=== PATIENT | male | born 1990 | race Caucasian/White ===

== ENCOUNTER 2017-06-26 07:53 | Inpatient (IN) | payer MEDICAID ==
[~2017-06-26] VITALS: Ht 190.5 cm; Wt 119.2 kg
[~2017-06-26 07:53] MED LIST: ONDA1TAB16 PO; PERC5TAB12 PO
[2017-06-26 07:55] VITALS: BP 139/88; PULSE 84; RESP 17; TEMP 98.1; O2SAT 99
[2017-06-26 08:27] LABS: BILIRUBIN, URINE NEG (NEG); BLOOD, URINE TRACE (NEG); GLUCOSE,URINE NEG (NEG); KETONE, URINE NEG (NEG); NITRITE,URINE NEG (NEG); URINE LEUKOCYTE ESTERASE NEG (NEG)
[2017-06-26 08:36] LABS: RBC, URINE 0-3 /hpf (0-3); SQUAMOUS EPITHELIAL CELL URINE 0-5 /hpf (0-5); URINE COLOR YELLOW (YELLW/STRAW)
--- NOTE | 2017-06-26 08:38 | PD ---
HPI Chief Complaint: Abdominal Pain Time Seen by Provider: 08:21 Travel History International Travel<30 days: No Contact w/Intl Traveler<30days: No Traveled to known affect area: No History of Present Illness HPI This patient complains of abdominal pain. Duration is 3-4 days. Severity is moderate. Location is right lower quadrant. He has nausea and decreased appetite. Denies fever. No history of abdominal surgeries. He had Hodgkin's lymphoma but treatment ended 5 years ago. He hasn't followed up since. He went through chemotherapy. No alleviating factors. Pain is greatly exacerbated by pressing on his right lower abdomen. He denies hematuria, does have history of kidney stone 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) Chemotherapy: Yes (6 YEARS AGO-HODGKINS LYMPHOMA) Diminished Hearing: No Gastrointestinal Disorders: Yes (ca tumor) Kidney Stones: Yes Integumentary: Yes (HEAD TO HANDS A CHILD) Past Surgical History Abdominal Surgery: Yes (2 abd sx for removal of tumors) Thoracic Surgery: Yes (LYMPH NODE REMOVAL rigth axilla) Other Surgery: Yes (2 PORT REMOVAL ) Social History Alcohol Use: No Tobacco Use: No Substance Use: No Allergies-Medications (Allergen,Severity, Reaction): Coded Allergies: clindamycin (Unverified Allergy, Severe, EDMUNDO'S SYNDROME, 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) vancomycin (Unverified Allergy, Severe, REDMANS SYNDROME, 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) Reported Meds & Prescriptions Reported Meds & Active Scripts Active No Active Prescriptions or Reported Medications Review of Systems General / Constitutional: No: Fever Eyes: No: Visual changes HENT: No: Headaches Cardiovascular: No: Chest Pain or Discomfort Respiratory: No: Shortness of Breath Gastrointestinal: Positive: Nausea, Abdominal Pain, Loss of Appetite Genitourinary: No: Dysuria Musculoskeletal: No: Pain Skin: No Rash Neurologic: No: Weakness Psychiatric: No: Depression Endocrine: No: Polydipsia Hematologic/Lymphatic: No: Easy Bruising Physical Exam Narrative GENERAL: Well-nourished, well-developed patient with abdominal pain. SKIN: Focused skin assessment reveals no rash and nodules. Skin is Warm and dry. HEAD: Atraumatic. Normocephalic. EYES: Pupils equal and round. No scleral icterus. No injection or drainage. ENT: No nasal bleeding or discharge. Mucous membranes pink and moist. NECK: Trachea midline. No JVD. CARDIOVASCULAR: Regular rate and rhythm. No murmur appreciated. RESPIRATORY: No accessory muscle use. Clear to auscultation. Breath sounds equal bilaterally. GASTROINTESTINAL: Abdomen soft, right lower quadrant is tender, nondistended. Hepatic and splenic margins not palpable. No rebound tenderness MUSCULOSKELETAL: No obvious deformities. No clubbing. No cyanosis. No edema. NEUROLOGICAL: Awake and alert. No obvious cranial nerve deficits. Motor grossly within normal limits. Normal speech. PSYCHIATRIC: Appropriate mood and affect; insight and judgment normal. Data Data Last Documented VS Vital Signs Date Time Temp Pulse Resp B/P (MAP) Pulse Ox O2 Delivery O2 Flow Rate FiO2 06/26/17 09:22 74 16 144/67 (92) 98 Room Air 06/26/17 07:55 98.1 Orders Orders Urinalysis - C+S If Indicated (06/26/17 08:15) Basic Metabolic Panel (Bmp) (06/26/17 08:31) Complete Blood Count With Diff (06/26/17 08:31) Prothrombin Time / Inr (Pt) (06/26/17 08:31) Act Partial Throm Time (Ptt) (06/26/17 08:31) Ct Abd/Pel W Iv Contrast(Rout) (06/26/17 08:31) Iv Access Insert/Monitor (06/26/17 08:31) NPO (06/26/17 08:31) Morphine Inj (Morphine Inj) (06/26/17 08:45) Ondansetron Inj (Zofran Inj) (06/26/17 08:45) Sodium Chloride 0.9% Flush (Ns Flush) (06/26/17 08:45) Sodium Chlor 0.9% 1000 Ml Inj (Ns 1000 M (06/26/17 08:45) Morphine Inj (Morphine Inj) (06/26/17 08:45) Iohexol 350 Inj (Omnipaque 350 Inj) (06/26/17 09:00) Ampicillin-Sulbactam Inj (Unasyn Inj) (06/26/17 09:15) Consent (06/26/17 09:37) Admit Order (Ed Use Only) (06/26/17 09:39) Labs Laboratory Tests Test 06/26/17 08:23 06/26/17 08:42 Urine Collection Type CLEAN CATCH Urine Color YELLOW Urine Turbidity CLEAR Urine pH 6.0 Urine Specific [place] 1.017 Urine Protein NEG mg/dL Urine Glucose (UA) NEG mg/dL Urine Ketones NEG mg/dL Urine Occult Blood TRACE Urine Nitrite NEG Urine Bilirubin NEG Urine Leukocyte Esterase NEG Urine RBC 0-3 /hpf Urine Squamous Epithelial Cells 0-5 /hpf Microscopic Urinalysis Comment CULT NOT INDICATED Urine Collection Time 08:23 White Blood Count 11.2 TH/MM3 Red Blood Count 4.93 MIL/MM3 Hemoglobin 14.5 GM/DL Hematocrit 42.3 % Mean Corpuscular Volume 85.8 FL Mean Corpuscular Hemoglobin 29.4 PG Mean Corpuscular Hemoglobin Concent 34.3 % Red Cell Distribution Width 11.8 % Platelet Count 214 TH/MM3 Mean Platelet Volume 7.2 FL Neutrophils (%) (Auto) 73.9 % Lymphocytes (%) (Auto) 12.5 % Monocytes (%) (Auto) 11.0 % Eosinophils (%) (Auto) 0.8 % Basophils (%) (Auto) 1.8 % Neutrophils # (Auto) 8.3 TH/MM3 Lymphocytes # (Auto) 1.4 TH/MM3 Monocytes # (Auto) 1.2 TH/MM3 Eosinophils # (Auto) 0.1 TH/MM3 Basophils # (Auto) 0.2 TH/MM3 CBC Comment DIFF FINAL Differential Comment Prothrombin Time 11.4 SEC Prothromb Time International Ratio 1.0 RATIO Activated Partial Thromboplast Time 29.7 SEC Blood Urea Nitrogen 10 MG/DL Creatinine 0.85 MG/DL Random Glucose 97 MG/DL Calcium Level 8.8 MG/DL Sodium Level 138 MEQ/L Potassium Level 4.0 MEQ/L Chloride Level 103 MEQ/L Carbon Dioxide Level 26.9 MEQ/L Anion Gap 8 MEQ/L Estimat Glomerular Filtration Rate 108 ML/MIN [facility] Medical Decision Making Medical Screen Exam Complete: Yes Emergency Medical Condition: Yes Medical Record Reviewed: Yes Differential Diagnosis Appendicitis, colitis, obstruction Narrative Course I have reviewed the patient's electronic medical record. IV placed CBC shows white count of 11.2 Metabolic profile is normal Coagulation studies are normal Urinalysis is clean CT of abdomen and pelvis with IV contrast shows acute appendicitis with suggestion of perforation given the free fluid around the appendix I gave him a dose of IV Zofran and IV morphine for symptom relief I gave him 1 L normal saline IV and a dose of IV Unasyn I reviewed the case in detail with general surgeon Dr. Geoff Shipley who will admit to the hospital and perform an appendectomy Diagnosis Primary Impression: Acute fulminating appendicitis with perforation and peritonitis Admitting Information Admitting Physician Requests: Admit Scripts No Active Prescriptions or Reported Meds Brian Zuñiga MD Jun 26, 2017 08:38
[2017-06-26 08:45] LABS: AUTOMATED NEUTROPHIL # 8.3 TH/MM3 (1.8-7.7); BASOPHIL # 0.2 TH/MM3 (0-0.2); BASOPHIL % 1.8 % (0.0-2.0); EOSINOPHIL # 0.1 TH/MM3 (0-0.4); EOSINOPHIL % 0.8 % (0.0-4.0); HEMATOCRIT 42.3 % (39.0-51.0); HEMOGLOBIN 14.5 GM/DL (13.0-17.0); LYMPH % 12.5 % (9.0-44.0); LYMPHOCYTE # 1.4 TH/MM3 (1.0-4.8); MEAN CELL VOLUME 85.8 FL (80.0-100.0); MEAN CORPUSCULAR HEMOGLOBIN 29.4 PG (27.0-34.0); MEAN CORPUSCULAR HGB CONC 34.3 % (32.0-36.0); MEAN PLATELET VOLUME 7.2 FL (7.0-11.0); MONOCYTE # 1.2 TH/MM3 (0-0.9); NEUT % 73.9 % (16.0-70.0); PLATELET COUNT 214 TH/MM3 (150-450); RED BLOOD COUNT 4.93 MIL/MM3 (4.50-5.90); RED CELL DISTRIBUTION WIDTH 11.8 % (11.6-17.2); WHITE BLOOD COUNT 11.2 TH/MM3 (4.0-11.0)
[2017-06-26] MEDS ORDERED: MORPHINE SULFATE 4 MG/ML INJ IV PUSH ONE (08:45)
[2017-06-26] MEDS ORDERED: SODIUM CHLOR 0.9% 1000 ML INJ 1,000 ML IV ONE (08:45)
[2017-06-26] MEDS ORDERED: MORPHINE SULFATE 8 MG/ML INJ IV PUSH ONE (08:45)
[2017-06-26] MEDS ORDERED: ONDANSETRON HCL 4 MG/2 ML VIAL IVP ONE (08:45)
[2017-06-26 08:55] LABS: CALCIUM 8.8 MG/DL (8.5-10.1)
[2017-06-26 08:56] LABS: BICARBONATE 26.9 MEQ/L (21.0-32.0)
[2017-06-26 08:57] LABS: PROTHROMBIN TIME - PATIENT 11.4 SEC (9.8-11.6)
[2017-06-26 08:59] LABS: CREATININE 0.85 MG/DL (0.60-1.30)
[2017-06-26] MEDS ORDERED: IOHEXOL 350 MG/ML 10 ML VIAL (for RAD DIAG) IVCONTRAST ONE (09:00)
[2017-06-26] MEDS ORDERED: AMPICILLIN-SULBACTAM INJ 1,500 MG in SODIUM CHLORIDE 0.9% INJ 100 ML IV ONE (09:15)
[2017-06-26 09:22] VITALS: BP 144/67; PULSE 74; RESP 16; O2SAT 98
--- NOTE | 2017-06-26 09:30 | RADRPT ---
EXAM DATE/TIME: 06/26/2017 08:56 [facility] COMPARISON: No previous studies available for comparison. INDICATIONS : Right lower quadrant pain x 4 days. Evaluate for appendicitis. IV CONTRAST: 85 cc Omnipaque 350 (iohexol) IV ORAL CONTRAST: No oral contrast ingested. RADIATION DOSE: 19.62 CTDIvol (mGy) MEDICAL HISTORY : Lymphoma. Renal calculi. SURGICAL HISTORY : Abdominal tumors removed. ENCOUNTER: Initial ACUITY: 4 - 6 days PAIN SCALE: 10/10 LOCATION: Right lower quadrant TECHNIQUE: Volumetric scanning of the abdomen and pelvis was performed. Using automated exposure control and adjustment of the mA and/or kV according to patient size, radiation dose was kept as low as reasonably achievable to obtain optimal diagnostic quality images. DICOM format image data is av ailable electronically for review and comparison. FINDINGS: LOWER LUNGS: The visualized lower lungs are clear. LIVER: Homogeneous density without lesion. There is no dilation of the biliary tree. No calcifi ed gallstones. SPLEEN: Mild splenomegaly is noted. PANCREAS: Within normal limits. KIDNEYS: Normal in size and shape. There is no mass, stone or hydronephrosis. ADRENAL GLANDS: Within normal limits. VASCULAR: There is no aortic aneurysm. BOWEL/MESENTERY: There is evidence of a dilated appendix with periappendiceal fluid and inflammat ory changes as well as tiny calcification suggesting appendicolith. The findings are consistent with acute appendicitis with probable perforation. Findings were called immediately to Dr. Zuñiga at 9:25 AM on 06/26/17. There is a small collection of free fluid within the pelvis. ABDOMINAL WALL: Within normal limits. RETROPERITONEUM: There is no lymphadenopathy. BLADDER: No wall thickening or mass. REPRODUCTIVE: Within normal limits. INGUINAL: There is no lymphadenopathy or hernia. MUSCULOSKELETAL: Within normal limits for patient age. CONCLUSION: 1. Dilated appendix with periappendiceal fluid and inflammatory changes as well as tiny calcification suggesting appendicolith. The findings are consistent with acute appendicitis with probable perforat ion. Findings were called immediately to Dr. Zuñiga at 9:25 AM on 06/26/17. There is a small collecti on of free fluid within the pelvis. 2. Mild splenomegaly. Anthony Mora MD on June 26, 2017 at 9:21 Board Certified Radiologist. This report was verified electronically.
[2017-06-26 10:55] VITALS: BP 128/58; PULSE 69; RESP 16; TEMP 97.9; O2SAT 99
[2017-06-26] MEDS: LACTATED RINGER'S 1000 ML IV PRN ×2 (11:30→12:33)
[2017-06-26] MEDS ORDERED: CHLORHEXIDINE GLUCONATE 2 % 1 PACK (2 CLOTHS) TOPICAL PRN (12:00)
[2017-06-26] MEDS ORDERED: SODIUM CHLORID 0.9% 500 ML IV PRN (12:00)
[2017-06-26] MEDS ORDERED: POVIDONE IODINE 5% (ANTISEPSIS KIT) 4 APPLICATIONS EACH NARE PRN (12:00)
[2017-06-26] MEDS ORDERED: METOPROLOL TARTRATE 25 MG TAB PO PRN (12:00)
[2017-06-26] MEDS ORDERED: INSULIN HUMAN REGULAR 1,000 UNITS/10 ML VIAL SQ PRN (12:00)
[2017-06-26] MEDS ORDERED: ACETAMINOPHEN 1000 MG/100 ML 100 ML IV ONE (12:39)
[2017-06-26] MEDS ORDERED: PIPERACIL-TAZO 2.25 GM PREMIX 50 ML IV SCH (13:15)
[2017-06-26] MEDS: D5-NS + KCL 20 MEQ INJ 1,000 ML IV SCH ×2 (13:33→21:33)
[2017-06-26] MEDS ORDERED: ONDANSETRON HCL 4 MG/2 ML VIAL IV PUSH PRN (13:45)
[2017-06-26] MEDS: DOCUSATE SODIUM 100 MG CAP PO SCH ×2 (13:45→21:48)
[2017-06-26] MEDS: SODIUM CHLORIDE 0.9% FLUSH 10 ML FLUSH IV FLUSH SCH ×2 (13:45→21:51)
[2017-06-26] MEDS ORDERED: Post-op Orders (for Pharmacy) MISC XX ONE (13:45)
[2017-06-26] MEDS ORDERED: SODIUM CHLORIDE 0.9% FLUSH 10 ML FLUSH IV FLUSH PRN (13:45)
[2017-06-26] MEDS ORDERED: ACETAMINOPHEN/HYDROcodone 325 MG/5 MG TAB PO PRN (13:45)
[2017-06-26] MEDS ORDERED: BUPIVACAINE HCL PF 0.5% 30 ML VIAL ONE (13:53)
[2017-06-26] MEDS ORDERED: SUGAMMADEX SODIUM 200 MG/2 ML VIAL IV PUSH ONE ×2 (14:21)
--- NOTE | 2017-06-26 14:23 | HHI.PR ---
Immediate Post Op Note Procedure Date: Jun 26, 2017 Pre Op Diagnosis: perforated appendicitis Post Op Diagnosis: same Surgeon: Geoff Shipley MD Route Salesman And Driver(s): see or sheet Procedure: lap appy Findings: contained perf appy Complications: none Specimen(s) removed: appendix, culture pus Estimated blood loss: 5cc Anesthesia: General Drains: YULI Patient to: PACU Patient Condition: Good Geoff Shipley MD Jun 26, 2017 14:23
--- NOTE | 2017-06-26 14:23 | HHI.PR ---
Immediate Post Op Note Procedure Date: Jun 26, 2017 Pre Op Diagnosis: perforated appendicitis Post Op Diagnosis: same Surgeon: Geoff Shipley MD Rail Specialist(s): see or sheet Procedure: lap appy Findings: contained perf appy Complications: none Specimen(s) removed: appendix, culture pus Estimated blood loss: 5cc Anesthesia: General Drains: YULI Patient to: PACU Patient Condition: Good Geoff Shipley MD Jun 26, 2017 14:23
--- NOTE | 2017-06-26 14:23 | HHI.PR ---
Immediate Post Op Note Procedure Date: Jun 26, 2017 Pre Op Diagnosis: perforated appendicitis Post Op Diagnosis: same Surgeon: Geoff Shipley MD Wind Energy Technician(s): see or sheet Procedure: lap appy Findings: contained perf appy Complications: none Specimen(s) removed: appendix, culture pus Estimated blood loss: 5cc Anesthesia: General Drains: YULI Patient to: PACU Patient Condition: Good Geoff Shipley MD Jun 26, 2017 14:23
[2017-06-26] MEDS ORDERED: MORPHINE SULFATE 2 MG/ML INJ ONE ×2 (15:20→15:36)
[2017-06-26] MEDS: KETOROLAC TROMETHAMINE 30 MG/ML (IVP) VIAL IVP PRN (15:26)
[2017-06-26 17:32] VITALS: BP 133/64; PULSE 82; RESP 16; TEMP 98.2; O2SAT 96
[2017-06-26] MEDS: ACETAMINOPHEN/HYDROcodone 325 MG/5 MG TAB PO PRN (18:19)
[2017-06-26 21:12] VITALS: BP 147/63; PULSE 73; RESP 18; TEMP 96.9; O2SAT 98
[2017-06-26] MEDS: PIPERACIL-TAZO 3.375 GM PREMIX 50 ML IV SCH (21:49)
--- NOTE | 2017-06-26 23:14 | MH ---
cc: NEMESIO COLIN MD DATE OF ADMISSION 06/26/2017 CHIEF COMPLAINT Right lower quadrant abdominal pain. HISTORY OF PRESENT ILLNESS The patient is a 27-year-old male who presents with acute onset of right lower quadrant abdominal pain. He states the pain has been going on for approximately 4 days. It is moderate in severity, continued to get worse, worse with movement, better with lying still. Also had associated nausea, vomiting, decreased appetite. The patient denied any fevers and came to the emergency department, further evaluation including CT scan showing acute appendicitis with localized abscess. Surgery consulted for further evaluation. On my exam the patient has a significant right lower quadrant pain consistent with appendicitis. He confirms the above and states he has never had this before. He has had a history of Hodgkin's lymphoma treated 5 years ago and is currently in remission. He did go through chemotherapy. He denies diarrhea, constipation. PAST MEDICAL HISTORY Hodgkin's lymphoma, kidney stones. PAST SURGICAL HISTORY Excision locally of abdominal tumors. Right axillary lymph node, excision of port. SOCIAL HISTORY Denies smoking, EtOH or IVDA. ALLERGIES CLINDAMYCIN AND VANCOMYCIN. MEDICATIONS See EMR. FAMILY HISTORY Denies diabetes or hypertension. REVIEW OF SYSTEMS GENERAL: Denies fevers or chills. HEENT: Denies eye pain or ear pain. NECK: Denies swelling or pain. LUNGS: Denies cough or wheeze. HEART: Denies palpitation or chest pain. ABDOMEN: Complained of nausea, vomiting, abdominal pain. : Denies dysuria, hematuria. MUSCULOSKELETAL: Denies arthralgia, myalgia. SKIN: Denies masses or lesions. NEUROLOGIC: Denies numbness or tingling. PSYCH: Denies change in mood or sensorium. ENDOCRINE: Denies polyuria, polydipsia. PHYSICAL EXAMINATION GENERAL: The patient no acute distress. VITAL SIGNS: Temperature 98.1, pulse 74, respirations 16, blood pressure 144/67, pulse ox 98% on room air. HEENT: PERRLA, pupils equal, round, reactive. LUNGS: Clear to auscultation. NECK: Supple. Trachea midline. HEART: S1-S2, regular rhythm. ABDOMEN: Soft, positive tenderness to palpation. Positive rebound right lower quadrant. No guarding. EXTREMITIES: Warm, well-perfused. INTEGUMENT: No obvious masses or lesions. PSYCH: Good insight, good judgment. NEUROLOGIC: GCS of 15. 5/5 motor all extremities. LABORATORY AND DIAGNOSTIC DATA WBC 11.2, hemoglobin 14.5, hematocrit 42.3, platelets 214, sodium 138, potassium 4, chloride 103, BUN 10, creatinine 0.85, calcium 8.8, INR is 1. IMAGING STUDIES CT reviewed by myself. Dilated appendix, periappendiceal inflammation, small appendicolith, abscess, perforation localized. ASSESSMENT The patient is a 27-year-old male, acute appendicitis. PLAN After full clinical, radiologic, laboratory workup the patient with the above-named issues including acute appendicitis. At this point the patient needs to be p.o. IV fluids, pain control. Will plan to take the patient to the OR tonight for laparoscopic appendectomy. Discussed with the patient in detail, understands and agrees. MD PRIYANKA Virk/SANGEETHA /10:54 PM /11:07 PM
[2017-06-27 00:37] VITALS: BP 119/55; PULSE 85; RESP 16; TEMP 98.7; O2SAT 97
[2017-06-27] MEDS: ACETAMINOPHEN/HYDROcodone 325 MG/5 MG TAB PO PRN ×4 (01:01→17:58)
[2017-06-27] MEDS: D5-NS + KCL 20 MEQ INJ 1,000 ML IV SCH ×3 (05:33→19:45)
[2017-06-27 06:55] LABS: AUTOMATED NEUTROPHIL # 7.9 TH/MM3 (1.8-7.7); BASOPHIL # 0.1 TH/MM3 (0-0.2); BASOPHIL % 0.5 % (0.0-2.0); EOSINOPHIL # 0.1 TH/MM3 (0-0.4); EOSINOPHIL % 0.7 % (0.0-4.0); HEMATOCRIT 36.8 % (39.0-51.0); HEMOGLOBIN 12.7 GM/DL (13.0-17.0); LYMPH % 11.4 % (9.0-44.0); LYMPHOCYTE # 1.2 TH/MM3 (1.0-4.8); MEAN CELL VOLUME 86.2 FL (80.0-100.0); MEAN CORPUSCULAR HEMOGLOBIN 29.8 PG (27.0-34.0); MEAN CORPUSCULAR HGB CONC 34.6 % (32.0-36.0); MEAN PLATELET VOLUME 7.3 FL (7.0-11.0); MONO % 8.6 % (0.0-8.0); MONOCYTE # 0.9 TH/MM3 (0-0.9); NEUT % 78.8 % (16.0-70.0); PLATELET COUNT 189 TH/MM3 (150-450); RED BLOOD COUNT 4.27 MIL/MM3 (4.50-5.90); RED CELL DISTRIBUTION WIDTH 11.4 % (11.6-17.2); WHITE BLOOD COUNT 10.2 TH/MM3 (4.0-11.0)
[2017-06-27 07:10] LABS: CALCIUM 8.4 MG/DL (8.5-10.1)
[2017-06-27 07:11] LABS: BICARBONATE 28.5 MEQ/L (21.0-32.0)
[2017-06-27 07:14] LABS: CREATININE 0.75 MG/DL (0.60-1.30)
[2017-06-27] MEDS: PIPERACIL-TAZO 3.375 GM PREMIX 50 ML IV SCH ×3 (07:18→22:05)
[2017-06-27] MEDS: SODIUM CHLORIDE 0.9% FLUSH 10 ML FLUSH IV FLUSH SCH ×2 (07:28→19:45)
[2017-06-27] MEDS: DOCUSATE SODIUM 100 MG CAP PO SCH ×2 (07:39→19:45)
[2017-06-27 08:00] VITALS: BP 138/71; PULSE 84; RESP 16; TEMP 96.6; O2SAT 99
--- NOTE | 2017-06-27 08:08 | HHI.PR ---
Subjective Subjective Notes urinary retention, left scrotal pain, still with abdominal pain but better, no nausea Objective Vitals/I&O Vital Signs Date Time Temp Pulse Resp B/P (MAP) Pulse Ox O2 Delivery O2 Flow Rate FiO2 06/27/17 04:06 06/27/17 00:37 98.7 85 16 97 06/26/17 16:00 Room Air 06/26/17 14:40 3 Labs Laboratory Tests Test 06/26/17 08:23 06/26/17 08:42 06/27/17 06:40 Urine Collection Type CLEAN CATCH Urine Color YELLOW Urine Turbidity CLEAR Urine pH 6.0 Urine Specific [place] 1.017 Urine Protein NEG Urine Glucose (UA) NEG Urine Ketones NEG Urine Occult Blood TRACE Urine Nitrite NEG Urine Bilirubin NEG Urine Leukocyte Esterase NEG Urine RBC 0-3 Urine Squamous Epithelial Cells 0-5 Microscopic Urinalysis Comment CULT NOT INDICATED Urine Collection Time 08:23 White Blood Count 11.2 10.2 Red Blood Count 4.93 4.27 Hemoglobin 14.5 12.7 Hematocrit 42.3 36.8 Mean Corpuscular Volume 85.8 86.2 Mean Corpuscular Hemoglobin 29.4 29.8 Mean Corpuscular Hemoglobin Concent 34.3 34.6 Red Cell Distribution Width 11.8 11.4 Platelet Count 214 189 Mean Platelet Volume 7.2 7.3 Neutrophils (%) (Auto) 73.9 78.8 Lymphocytes (%) (Auto) 12.5 11.4 Monocytes (%) (Auto) 11.0 8.6 Eosinophils (%) (Auto) 0.8 0.7 Basophils (%) (Auto) 1.8 0.5 Neutrophils # (Auto) 8.3 7.9 Lymphocytes # (Auto) 1.4 1.2 Monocytes # (Auto) 1.2 0.9 Eosinophils # (Auto) 0.1 0.1 Basophils # (Auto) 0.2 0.1 CBC Comment DIFF FINAL DIFF FINAL Differential Comment Prothrombin Time 11.4 Prothromb Time International Ratio 1.0 Activated Partial Thromboplast Time 29.7 Blood Urea Nitrogen 10 8 Creatinine 0.85 0.75 Random Glucose 97 102 Calcium Level 8.8 8.4 Sodium Level 138 140 Potassium Level 4.0 4.2 Chloride Level 103 106 Carbon Dioxide Level 26.9 28.5 Anion Gap 8 6 Estimat Glomerular Filtration Rate 108 125 Date/Time Source Procedure Growth Status 06/26/17 14:25 Abscess Abdomen Fungal Smear Pending Received 06/26/17 14:25 Abscess Abdomen Fungal Culture Pending Received Abdomen: Other (soft+ttp rlq, incisional tenderness) A/P Assessment and Plan POD 1 lap appy- perforated, urinary retention, left scrotal crepitus us with good testicular flow 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
--- NOTE | 2017-06-27 09:31 | RADRPT ---
EXAM DATE/TIME: 06/27/2017 08:56 This report includes an Addendum and supersedes previous reports for this exam. [facility] COMPARISON: No previous studies available for comparison. INDICATIONS : Left testicle pain. MEDICAL HISTORY : Left testicle pain. Hodgkin's lymphoma, remission. SURGICAL HISTORY : Port placement and removal, x2. ENCOUNTER: Initial ACUITY: 3 days PAIN SCORE: 7/10 LOCATION: Left testicle. MEASUREMENTS: RIGHT TESTICLE: 3.8 x 2.8 x 5.7cm LEFT TESTICLE: 4.1 x 2.8 x 5.2cm FINDINGS: RIGHT TESTICLE: Homogeneous echotexture without intra or extratesticular mass. Blood flow is symmetric and within no rmal limits. No hydrocele or varicocele. Epididymis is within normal limits. LEFT TESTICLE: Homogeneous echotexture without intra or extratesticular mass. Blood flow is symmetric and within no rmal limits. No hydrocele or varicocele. Epididymis is obscured by gas. SCROTUM: Air in the left scrotal wall. 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 2. Limited evaluation of the left epididymis due to scrotal wall emphysema. 3. Unremarkable sonographic appearance of the left testicle with symmetrical testicular blood flow. Guevara Emerson MD on June 27, 2017 at 9:24 Board Certified Radiologist. This report was verified electronically. ADDENDUM: Additional history of appendectomy has been provided. Given recent appendectomy, the scrotal wall emp hysema is likely postsurgical. Guevara Emerson MD on June 27, 2017 at 11:42 Board Certified Radiologist. This report was verified electronically.
--- NOTE | 2017-06-27 11:50 | PD.CONS ---
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 Patient was initially admitted with perforated appendicitis and under went Lap appendectomy. He then reported difficulty in voiding with scrotal swelling and pain. Upon further questioning, he has had the scrotal pain and swelling for several days prior to admit. 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 Patient is not a diabetic. History of Nonhodgkin's lymphoma. Currently with an indwelling urethral catheter in place Review of Systems ROS Limitations: Clinical Condition Constitutional: DENIES: Fever Endocrine: DENIES: Heat/cold intolerance Ears, nose, mouth, throat: DENIES: Hearing loss Respiratory: DENIES: Apneas Cardiovascular: DENIES: Chest pain Genitourinary: COMPLAINS OF: Testicular Pain, Testicular Swelling Musculoskeletal: DENIES: Joint pain Integumentary: DENIES: Abnormal pigmentation Hematologic/lymphatic: DENIES: Bruising Immunologic/allergic: DENIES: Eczema Neurologic: DENIES: Abnormal gait Psychiatric: DENIES: Anxiety Except as stated in HPI: all other systems reviewed are Neg Past Family Social History Past Medical History Nonhodgkins lymphoma Past Surgical History Lap appendectomy Abdominal tumor resection Reported Medications Reported Meds & Active Scripts Active No Active Prescriptions or Reported Medications Allergies: Coded Allergies: clindamycin (Unverified Allergy, Severe, EDMUNDO'S SYNDROME, 06/26/17) vancomycin (Unverified Allergy, Severe, REDMANS SYNDROME, 06/26/17) Active Ordered Medications Current Medications Medications (Trade) Dose Ordered Sig/[employer] [place] Route Start Time Stop Time Status Last Admin (NS Flush) 2 ml UNSCH PRN IV FLUSH 06/26/17 08:45 Lactated Ringer's 1,000 ml @ 30 mls/hr Q24H PRN IV 06/26/17 12:00 06/29/17 11:59 06/26/17 11:30 Sodium Chloride 500 ml @ 30 mls/hr [id number] PRN IV 06/26/17 12:00 06/29/17 11:59 (Lopressor) 25 mg REVIEW APPRAISER PRN PO 06/26/17 12:00 06/29/17 11:59 (Betadine 5% Antisepsis Kit) 1 applic REVIEW APPRAISER PRN EACH NARE 06/26/17 12:00 06/29/17 11:59 (Chlorhexidine 2% Cloth) 3 pack REVIEW APPRAISER PRN TOPICAL 06/26/17 12:00 06/29/17 11:59 (NovoLIN R INJ) See Protocol Table ... REVIEW APPRAISER PRN SQ 06/26/17 12:00 06/29/17 11:59 Piperacillin Sod/ Tazobactam Sod 50 ml @ 100 mls/hr REVIEW APPRAISER IV 06/26/17 13:15 Potassium Chloride/Dextrose/ Sod Cl 1,000 ml @ 125 mls/hr Q8H IV 06/26/17 13:33 06/27/17 05:33 (NS Flush) 2 ml UNSCH PRN IV FLUSH 06/26/17 13:45 (NS Flush) 2 ml BID IV FLUSH 06/26/17 13:45 06/26/17 21:51 (Toradol Inj) 15 mg Q6H PRN IVP 06/26/17 13:45 07/01/17 13:44 06/27/17 16:00 ([place] 5-325 Mg) 1 tab Q4H PRN PO 06/26/17 13:45 ([place] 5-325 Mg) 2 tab Q4H PRN PO 06/26/17 13:45 06/27/17 17:58 (Morphine Inj) 5 mg Q2H PRN IV PUSH 06/26/17 13:45 (Zofran Inj) 4 mg Q4H PRN IV PUSH 06/26/17 13:45 (Colace) 100 mg BID PO 06/26/17 13:45 06/27/17 07:39 Piperacillin Sod/ Tazobactam Sod 50 ml @ 100 mls/hr Q8HR IV 06/26/17 22:00 06/27/17 15:55 Pharmacy Profile Note ml @ 0 mls/hr UNSCH OTHER 06/27/17 12:00 Vancomycin HCl 2000 mg/Sodium Chloride 520 ml @ 201.29 mls/ hr Q12H IV 06/28/17 00:00 Miscellaneous Information SPECIFIC LAB TO BE GRACIE... ONCE ONCE .XX 06/28/17 23:45 06/28/17 23:46 Family History Family history reviewed and noncontributory to present illness Social History No tobacco Physical Exam Vital Signs Date Time Temp Pulse Resp B/P (MAP) Pulse Ox O2 Delivery O2 Flow Rate FiO2 06/27/17 08:00 96.6 84 16 138/71 (93) 99 06/27/17 04:06 06/27/17 00:37 98.7 85 16 119/55 (76) 97 06/26/17 21:12 96.9 73 18 147/63 (91) 98 06/26/17 17:32 98.2 82 16 133/64 (87) 96 06/26/17 16:00 98.0 79 16 143/73 (96) 100 Room Air 06/26/17 15:25 73 16 163/65 (97) 100 06/26/17 15:10 71 16 149/72 (97) 100 06/26/17 14:55 78 16 152/68 (96) 100 06/26/17 14:40 98.6 83 16 138/64 (88) 100 Nasal Cannula 3 Physical Exam GENERAL: This is a well-nourished, well-developed patient, in no apparent distress. SKIN: No rashes, ecchymoses or lesions. Cool and dry. HEAD: Atraumatic. Normocephalic. . EYES: Extraocular motions intact. No scleral icterus. No injection or drainage. ENT: Nose without bleeding, purulent drainage. Airway patent. NECK: Trachea midline. No JVD CARDIOVASCULAR: Normal pulses RESPIRATORY: Nonlabored GASTROINTESTINAL: Abdomen soft, non-tender, nondistended. GENITOURINARY: Guevara in place,. Scrotum with mild swelling noted, normal appearing scrotal skin, very mild erythema, no skin breakdown, no evidence of necrosis. There is crepitus felt throughout the left hemiscrotum with tenderness to palpation of the left testis and epididymis. Normal right testis MUSCULOSKELETAL: Extremities without clubbing, cyanosis, or edema. NEUROLOGICAL: Awake and alert. Motor and sensory grossly within normal limits. Normal speech. Laboratory Tests Test 06/27/17 06:40 White Blood Count 10.2 Red Blood Count 4.27 Hemoglobin 12.7 Hematocrit 36.8 Mean Corpuscular Volume 86.2 Mean Corpuscular Hemoglobin 29.8 Mean Corpuscular Hemoglobin Concent 34.6 Red Cell Distribution Width 11.4 Platelet Count 189 Mean Platelet Volume 7.3 Neutrophils (%) (Auto) 78.8 Lymphocytes (%) (Auto) 11.4 Monocytes (%) (Auto) 8.6 Eosinophils (%) (Auto) 0.7 Basophils (%) (Auto) 0.5 Neutrophils # (Auto) 7.9 Lymphocytes # (Auto) 1.2 Monocytes # (Auto) 0.9 Eosinophils # (Auto) 0.1 Basophils # (Auto) 0.1 CBC Comment DIFF FINAL Differential Comment Blood Urea Nitrogen 8 Creatinine 0.75 Random Glucose 102 Calcium Level 8.4 Sodium Level 140 Potassium Level 4.2 Chloride Level 106 Carbon Dioxide Level 28.5 Anion Gap 6 Estimat Glomerular Filtration Rate 125 Date/Time Source Procedure Growth Status 06/26/17 14:25 Abscess Abdomen Fungal Smear - Final NO FUNGAL ELEMENTS SEEN. Resulted 06/26/17 14:25 Abscess Abdomen Fungal Culture Pending Resulted Result Diagram: 06/27/17 0640 06/27/17 0640 Personally reviewed images: Yes Imaging Last Impressions Scrotum Ultrasound 06/27/17 0000 Signed Impressions: Service Date/Time: Tuesday, June 27, 2017 08:56 - 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 2. Limited evaluation of the left epididymis due to scrotal wall emphysema. 3. Unremarkable sonographic appearance of the left testicle with symmetrical testicular blood flow. Guevara Emerson MD Abdomen/Pelvis CT 06/26/17 0831 Signed Impressions: Service Date/Time: Monday, June 26, 2017 08:56 - CONCLUSION: 1. Dilated appendix with periappendiceal fluid and inflammatory changes as well as tiny calcification suggesting appendicolith. The findings are consistent with acute appendicitis with probable perforation. Findings were called immediately to Dr. Zuñiga at 9:25 AM on 06/26/17. There is a small collection of free fluid within the pelvis. 2. Mild splenomegaly. Anthony Mora MD Recent CT pelvis with evidence of air within the left hemiscrotum, however no air within the scrotal wall tissues. Assessment and Plan Problem List: (1) Scrotal swelling ICD Code: N50.89 - Other specified disorders of the male genital organs (2) Testicular pain, left ICD Code: N50.812 - Left testicular pain (3) Acute fulminating appendicitis with perforation and peritonitis ICD Code: K35.3 - Acute appendicitis with localized peritonitis Status: Acute Assessment and Plan -Exam not consistent with obvious Tiara's -Patient's clinical status stable -Ultrasound with possible air noted in scrotum. However on exam it is likely related to recent Laparoscopic procedure and not true infection -Patient does have clinical evidence of possible epididymitis/orchitis -Obtain CT pelvis now to definitively rule out Tiara's -Continue IV abx -Will follow closely --CT pelvis with air noted within the left scrotum without involvement of the scrotal wall. Air appears to be tracking down the left spermatic cord as well. This is likely due to recent laparoscopic procedure -Continue antibiotics -Re-examine in the am with labs and physical exam Connor Anthony MD Jun 27, 2017 11:50
--- NOTE | 2017-06-27 11:50 | PD.CONS ---
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 Patient was initially admitted with perforated appendicitis and under went Lap appendectomy. He then reported difficulty in voiding with scrotal swelling and pain. Upon further questioning, he has had the scrotal pain and swelling for several days prior to admit. 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 Patient is not a diabetic. History of Nonhodgkin's lymphoma. Currently with an indwelling urethral catheter in place Review of Systems ROS Limitations: Clinical Condition Constitutional: DENIES: Fever Endocrine: DENIES: Heat/cold intolerance Ears, nose, mouth, throat: DENIES: Hearing loss Respiratory: DENIES: Apneas Cardiovascular: DENIES: Chest pain Genitourinary: COMPLAINS OF: Testicular Pain, Testicular Swelling Musculoskeletal: DENIES: Joint pain Integumentary: DENIES: Abnormal pigmentation Hematologic/lymphatic: DENIES: Bruising Immunologic/allergic: DENIES: Eczema Neurologic: DENIES: Abnormal gait Psychiatric: DENIES: Anxiety Except as stated in HPI: all other systems reviewed are Neg Past Family Social History Past Medical History Nonhodgkins lymphoma Past Surgical History Lap appendectomy Abdominal tumor resection Reported Medications Reported Meds & Active Scripts Active No Active Prescriptions or Reported Medications Allergies: Coded Allergies: clindamycin (Unverified Allergy, Severe, EDMUNDO'S SYNDROME, 06/26/17) vancomycin (Unverified Allergy, Severe, REDMANS SYNDROME, 06/26/17) Active Ordered Medications Current Medications Medications (Trade) Dose Ordered Sig/[place] Route Start Time Stop Time Status Last Admin (NS Flush) 2 ml UNSCH PRN IV FLUSH 06/26/17 08:45 Lactated Ringer's 1,000 ml @ 30 mls/hr Q24H PRN IV 06/26/17 12:00 06/29/17 11:59 06/26/17 11:30 Sodium Chloride 500 ml @ 30 mls/hr [id number] PRN IV 06/26/17 12:00 06/29/17 11:59 (Lopressor) 25 mg DIAMOND PICKER PRN PO 06/26/17 12:00 06/29/17 11:59 (Betadine 5% Antisepsis Kit) 1 applic DIAMOND PICKER PRN EACH NARE 06/26/17 12:00 06/29/17 11:59 (Chlorhexidine 2% Cloth) 3 pack DIAMOND PICKER PRN TOPICAL 06/26/17 12:00 06/29/17 11:59 (NovoLIN R INJ) See Protocol Table ... DIAMOND PICKER PRN SQ 06/26/17 12:00 06/29/17 11:59 Piperacillin Sod/ Tazobactam Sod 50 ml @ 100 mls/hr DIAMOND PICKER IV 06/26/17 13:15 Potassium Chloride/Dextrose/ Sod Cl 1,000 ml @ 125 mls/hr Q8H IV 06/26/17 13:33 06/27/17 05:33 (NS Flush) 2 ml UNSCH PRN IV FLUSH 06/26/17 13:45 (NS Flush) 2 ml BID IV FLUSH 06/26/17 13:45 06/26/17 21:51 (Toradol Inj) 15 mg Q6H PRN IVP 06/26/17 13:45 07/01/17 13:44 06/27/17 16:00 ([place] 5-325 Mg) 1 tab Q4H PRN PO 06/26/17 13:45 ([place] 5-325 Mg) 2 tab Q4H PRN PO 06/26/17 13:45 06/27/17 17:58 (Morphine Inj) 5 mg Q2H PRN IV PUSH 06/26/17 13:45 (Zofran Inj) 4 mg Q4H PRN IV PUSH 06/26/17 13:45 (Colace) 100 mg BID PO 06/26/17 13:45 06/27/17 07:39 Piperacillin Sod/ Tazobactam Sod 50 ml @ 100 mls/hr Q8HR IV 06/26/17 22:00 06/27/17 15:55 Pharmacy Profile Note ml @ 0 mls/hr UNSCH OTHER 06/27/17 12:00 Vancomycin HCl 2000 mg/Sodium Chloride 520 ml @ 201.29 mls/ hr Q12H IV 06/28/17 00:00 Miscellaneous Information SPECIFIC LAB TO BE GRACIE... ONCE ONCE .XX 06/28/17 23:45 06/28/17 23:46 Family History Family history reviewed and noncontributory to present illness Social History No tobacco Physical Exam Vital Signs Date Time Temp Pulse Resp B/P (MAP) Pulse Ox O2 Delivery O2 Flow Rate FiO2 06/27/17 08:00 96.6 84 16 138/71 (93) 99 06/27/17 04:06 06/27/17 00:37 98.7 85 16 119/55 (76) 97 06/26/17 21:12 96.9 73 18 147/63 (91) 98 06/26/17 17:32 98.2 82 16 133/64 (87) 96 06/26/17 16:00 98.0 79 16 143/73 (96) 100 Room Air 06/26/17 15:25 73 16 163/65 (97) 100 06/26/17 15:10 71 16 149/72 (97) 100 06/26/17 14:55 78 16 152/68 (96) 100 06/26/17 14:40 98.6 83 16 138/64 (88) 100 Nasal Cannula 3 Physical Exam GENERAL: This is a well-nourished, well-developed patient, in no apparent distress. SKIN: No rashes, ecchymoses or lesions. Cool and dry. HEAD: Atraumatic. Normocephalic. . EYES: Extraocular motions intact. No scleral icterus. No injection or drainage. ENT: Nose without bleeding, purulent drainage. Airway patent. NECK: Trachea midline. No JVD CARDIOVASCULAR: Normal pulses RESPIRATORY: Nonlabored GASTROINTESTINAL: Abdomen soft, non-tender, nondistended. GENITOURINARY: Guevara in place,. Scrotum with mild swelling noted, normal appearing scrotal skin, very mild erythema, no skin breakdown, no evidence of necrosis. There is crepitus felt throughout the left hemiscrotum with tenderness to palpation of the left testis and epididymis. Normal right testis MUSCULOSKELETAL: Extremities without clubbing, cyanosis, or edema. NEUROLOGICAL: Awake and alert. Motor and sensory grossly within normal limits. Normal speech. Laboratory Tests Test 06/27/17 06:40 White Blood Count 10.2 Red Blood Count 4.27 Hemoglobin 12.7 Hematocrit 36.8 Mean Corpuscular Volume 86.2 Mean Corpuscular Hemoglobin 29.8 Mean Corpuscular Hemoglobin Concent 34.6 Red Cell Distribution Width 11.4 Platelet Count 189 Mean Platelet Volume 7.3 Neutrophils (%) (Auto) 78.8 Lymphocytes (%) (Auto) 11.4 Monocytes (%) (Auto) 8.6 Eosinophils (%) (Auto) 0.7 Basophils (%) (Auto) 0.5 Neutrophils # (Auto) 7.9 Lymphocytes # (Auto) 1.2 Monocytes # (Auto) 0.9 Eosinophils # (Auto) 0.1 Basophils # (Auto) 0.1 CBC Comment DIFF FINAL Differential Comment Blood Urea Nitrogen 8 Creatinine 0.75 Random Glucose 102 Calcium Level 8.4 Sodium Level 140 Potassium Level 4.2 Chloride Level 106 Carbon Dioxide Level 28.5 Anion Gap 6 Estimat Glomerular Filtration Rate 125 Date/Time Source Procedure Growth Status 06/26/17 14:25 Abscess Abdomen Fungal Smear - Final NO FUNGAL ELEMENTS SEEN. Resulted 06/26/17 14:25 Abscess Abdomen Fungal Culture Pending Resulted Result Diagram: 06/27/17 0640 06/27/17 0640 Personally reviewed images: Yes Imaging Last Impressions Scrotum Ultrasound 06/27/17 0000 Signed Impressions: Service Date/Time: Tuesday, June 27, 2017 08:56 - 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 2. Limited evaluation of the left epididymis due to scrotal wall emphysema. 3. Unremarkable sonographic appearance of the left testicle with symmetrical testicular blood flow. Guevara Emerson MD Abdomen/Pelvis CT 06/26/17 0831 Signed Impressions: Service Date/Time: Monday, June 26, 2017 08:56 - CONCLUSION: 1. Dilated appendix with periappendiceal fluid and inflammatory changes as well as tiny calcification suggesting appendicolith. The findings are consistent with acute appendicitis with probable perforation. Findings were called immediately to Dr. Zuñiga at 9:25 AM on 06/26/17. There is a small collection of free fluid within the pelvis. 2. Mild splenomegaly. Anthony Mora MD Recent CT pelvis with evidence of air within the left hemiscrotum, however no air within the scrotal wall tissues. Assessment and Plan Problem List: (1) Scrotal swelling ICD Code: N50.89 - Other specified disorders of the male genital organs (2) Testicular pain, left ICD Code: N50.812 - Left testicular pain (3) Acute fulminating appendicitis with perforation and peritonitis ICD Code: K35.3 - Acute appendicitis with localized peritonitis Status: Acute Assessment and Plan -Exam not consistent with obvious Tiara's -Patient's clinical status stable -Ultrasound with possible air noted in scrotum. However on exam it is likely related to recent Laparoscopic procedure and not true infection -Patient does have clinical evidence of possible epididymitis/orchitis -Obtain CT pelvis now to definitively rule out Tiara's -Continue IV abx -Will follow closely --CT pelvis with air noted within the left scrotum without involvement of the scrotal wall. Air appears to be tracking down the left spermatic cord as well. This is likely due to recent laparoscopic procedure -Continue antibiotics -Re-examine in the am with labs and physical exam Connor Anthony MD Jun 27, 2017 11:50
--- NOTE | 2017-06-27 11:50 | PD.CONS ---
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 Patient was initially admitted with perforated appendicitis and under went Lap appendectomy. He then reported difficulty in voiding with scrotal swelling and pain. Upon further questioning, he has had the scrotal pain and swelling for several days prior to admit. 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 Patient is not a diabetic. History of Nonhodgkin's lymphoma. Currently with an indwelling urethral catheter in place Review of Systems ROS Limitations: Clinical Condition Constitutional: DENIES: Fever Endocrine: DENIES: Heat/cold intolerance Ears, nose, mouth, throat: DENIES: Hearing loss Respiratory: DENIES: Apneas Cardiovascular: DENIES: Chest pain Genitourinary: COMPLAINS OF: Testicular Pain, Testicular Swelling Musculoskeletal: DENIES: Joint pain Integumentary: DENIES: Abnormal pigmentation Hematologic/lymphatic: DENIES: Bruising Immunologic/allergic: DENIES: Eczema Neurologic: DENIES: Abnormal gait Psychiatric: DENIES: Anxiety Except as stated in HPI: all other systems reviewed are Neg Past Family Social History Past Medical History Nonhodgkins lymphoma Past Surgical History Lap appendectomy Abdominal tumor resection Reported Medications Reported Meds & Active Scripts Active No Active Prescriptions or Reported Medications Allergies: Coded Allergies: clindamycin (Unverified Allergy, Severe, EDMUNDO'S SYNDROME, 06/26/17) vancomycin (Unverified Allergy, Severe, REDMANS SYNDROME, 06/26/17) Active Ordered Medications Current Medications Medications (Trade) Dose Ordered Sig/Mary Kay Route Start Time Stop Time Status Last Admin (NS Flush) 2 ml UNSCH PRN IV FLUSH 06/26/17 08:45 Lactated Ringer's 1,000 ml @ 30 mls/hr Q24H PRN IV 06/26/17 12:00 06/29/17 11:59 06/26/17 11:30 Sodium Chloride 500 ml @ 30 mls/hr [id number] PRN IV 06/26/17 12:00 06/29/17 11:59 (Lopressor) 25 mg [employer]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 PARTY BUS DRIVER PRN SQ 06/26/17 12:00 06/29/17 11:59 Piperacillin Sod/ Tazobactam Sod 50 ml @ 100 mls/hr [employer]Y [employer]IVER IV 06/26/17 13:15 Potassium Chloride/Dextrose/ Sod Cl 1,000 ml @ 125 mls/hr Q8H IV 06/26/17 13:33 06/27/17 05:33 (NS Flush) 2 ml UNSCH PRN IV FLUSH 06/26/17 13:45 (NS Flush) 2 ml BID IV FLUSH 06/26/17 13:45 06/26/17 21:51 (Toradol Inj) 15 mg Q6H PRN IVP 06/26/17 13:45 07/01/17 13:44 06/27/17 16:00 (Warren 5-325 Mg) 1 tab Q4H PRN PO 06/26/17 13:45 (Warren 5-325 Mg) 2 tab Q4H PRN PO 06/26/17 13:45 06/27/17 17:58 (Morphine Inj) 5 mg Q2H PRN IV PUSH 06/26/17 13:45 (Zofran Inj) 4 mg Q4H PRN IV PUSH 06/26/17 13:45 (Colace) 100 mg BID PO 06/26/17 13:45 06/27/17 07:39 Piperacillin Sod/ Tazobactam Sod 50 ml @ 100 mls/hr Q8HR IV 06/26/17 22:00 06/27/17 15:55 Pharmacy Profile Note ml @ 0 mls/hr UNSCH OTHER 06/27/17 12:00 Vancomycin HCl 2000 mg/Sodium Chloride 520 ml @ 201.29 mls/ hr Q12H IV 06/28/17 00:00 Miscellaneous Information SPECIFIC LAB TO BE GRACIE... ONCE ONCE .XX 06/28/17 23:45 06/28/17 23:46 Family History Family history reviewed and noncontributory to present illness Social History No tobacco Physical Exam Vital Signs Date Time Temp Pulse Resp B/P (MAP) Pulse Ox O2 Delivery O2 Flow Rate FiO2 06/27/17 08:00 96.6 84 16 138/71 (93) 99 06/27/17 04:06 06/27/17 00:37 98.7 85 16 119/55 (76) 97 06/26/17 21:12 96.9 73 18 147/63 (91) 98 06/26/17 17:32 98.2 82 16 133/64 (87) 96 06/26/17 16:00 98.0 79 16 143/73 (96) 100 Room Air 06/26/17 15:25 73 16 163/65 (97) 100 06/26/17 15:10 71 16 149/72 (97) 100 06/26/17 14:55 78 16 152/68 (96) 100 06/26/17 14:40 98.6 83 16 138/64 (88) 100 Nasal Cannula 3 Physical Exam GENERAL: This is a well-nourished, well-developed patient, in no apparent distress. SKIN: No rashes, ecchymoses or lesions. Cool and dry. HEAD: Atraumatic. Normocephalic. . EYES: Extraocular motions intact. No scleral icterus. No injection or drainage. ENT: Nose without bleeding, purulent drainage. Airway patent. NECK: Trachea midline. No JVD CARDIOVASCULAR: Normal pulses RESPIRATORY: Nonlabored GASTROINTESTINAL: Abdomen soft, non-tender, nondistended. GENITOURINARY: Guevara in place,. Scrotum with mild swelling noted, normal appearing scrotal skin, very mild erythema, no skin breakdown, no evidence of necrosis. There is crepitus felt throughout the left hemiscrotum with tenderness to palpation of the left testis and epididymis. Normal right testis MUSCULOSKELETAL: Extremities without clubbing, cyanosis, or edema. NEUROLOGICAL: Awake and alert. Motor and sensory grossly within normal limits. Normal speech. Laboratory Tests Test 06/27/17 06:40 White Blood Count 10.2 Red Blood Count 4.27 Hemoglobin 12.7 Hematocrit 36.8 Mean Corpuscular Volume 86.2 Mean Corpuscular Hemoglobin 29.8 Mean Corpuscular Hemoglobin Concent 34.6 Red Cell Distribution Width 11.4 Platelet Count 189 Mean Platelet Volume 7.3 Neutrophils (%) (Auto) 78.8 Lymphocytes (%) (Auto) 11.4 Monocytes (%) (Auto) 8.6 Eosinophils (%) (Auto) 0.7 Basophils (%) (Auto) 0.5 Neutrophils # (Auto) 7.9 Lymphocytes # (Auto) 1.2 Monocytes # (Auto) 0.9 Eosinophils # (Auto) 0.1 Basophils # (Auto) 0.1 CBC Comment DIFF FINAL Differential Comment Blood Urea Nitrogen 8 Creatinine 0.75 Random Glucose 102 Calcium Level 8.4 Sodium Level 140 Potassium Level 4.2 Chloride Level 106 Carbon Dioxide Level 28.5 Anion Gap 6 Estimat Glomerular Filtration Rate 125 Date/Time Source Procedure Growth Status 06/26/17 14:25 Abscess Abdomen Fungal Smear - Final NO FUNGAL ELEMENTS SEEN. Resulted 06/26/17 14:25 Abscess Abdomen Fungal Culture Pending Resulted Result Diagram: 06/27/17 0640 06/27/17 0640 Personally reviewed images: Yes Imaging Last Impressions Scrotum Ultrasound 06/27/17 0000 Signed Impressions: Service Date/Time: Tuesday, June 27, 2017 08:56 - 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 2. Limited evaluation of the left epididymis due to scrotal wall emphysema. 3. Unremarkable sonographic appearance of the left testicle with symmetrical testicular blood flow. Guevara Emerson MD Abdomen/Pelvis CT 06/26/17 0831 Signed Impressions: Service Date/Time: Monday, June 26, 2017 08:56 - CONCLUSION: 1. Dilated appendix with periappendiceal fluid and inflammatory changes as well as tiny calcification suggesting appendicolith. The findings are consistent with acute appendicitis with probable perforation. Findings were called immediately to Dr. Zuñiga at 9:25 AM on 06/26/17. There is a small collection of free fluid within the pelvis. 2. Mild splenomegaly. Anthony Mora MD Recent CT pelvis with evidence of air within the left hemiscrotum, however no air within the scrotal wall tissues. Assessment and Plan Problem List: (1) Scrotal swelling ICD Code: N50.89 - Other specified disorders of the male genital organs (2) Testicular pain, left ICD Code: N50.812 - Left testicular pain (3) Acute fulminating appendicitis with perforation and peritonitis ICD Code: K35.3 - Acute appendicitis with localized peritonitis Status: Acute Assessment and Plan -Exam not consistent with obvious Tiara's -Patient's clinical status stable -Ultrasound with possible air noted in scrotum. However on exam it is likely related to recent Laparoscopic procedure and not true infection -Patient does have clinical evidence of possible epididymitis/orchitis -Obtain CT pelvis now to definitively rule out Tiara's -Continue IV abx -Will follow closely --CT pelvis with air noted within the left scrotum without involvement of the scrotal wall. Air appears to be tracking down the left spermatic cord as well. This is likely due to recent laparoscopic procedure -Continue antibiotics -Re-examine in the am with labs and physical exam Connor Anthony MD Jun 27, 2017 11:50
[2017-06-27 12:00] VITALS: BP 126/69; PULSE 73; RESP 16; TEMP 97.3; O2SAT 100
[2017-06-27] MEDS ORDERED: VANCOMYCIN 1,000 MG/NS 250 ML IV ONE ×4 (12:00→13:30)
[2017-06-27] MEDS ORDERED: Vancomycin Consult Pharmacy 1 EA OTHER SCH (12:00)
--- NOTE | 2017-06-27 13:25 | RADRPT ---
EXAM DATE/TIME: 06/27/2017 12:52 [facility] COMPARISON: US TESTICLE W/DOPPLER, June 27, 2017, 8:56. CT ABDOMEN & PELVIS W CONTRAST, June 26, 2017, 8 :56. INDICATIONS : Post op for ruptured appendix, swelling left testicle. ORAL CONTRAST: No oral contrast ingested. RADIATION DOSE: 21.18 CTDIvol (mGy) MEDICAL HISTORY : None SURGICAL HISTORY : Appendectomy. ENCOUNTER: Initial ACUITY: 1 day PAIN SCALE: 10/10 LOCATION: Left pelvis and chest. TECHNIQUE: Volumetric scanning of the pelvis was performed. Using automated exposure control and adjustment of the mA and/or kV according to patient size, radiation dose was kept as low as reasonably achievable t o obtain optimal diagnostic quality images. DICOM format image data is available electronically for review and comparison. FINDINGS: Intermittent back. A surgical drain is present with its tip just lateral to the base of the cecum. Th ere is trace free fluid. No organized or drainable collection. There is free air present and extendin g down the inguinal canals into the scrotum, especially on the left. No scrotal wall thickening or ot her inflammatory changes are demonstrated. The air is presumably iatrogenic. I don't see clear eviden ce of a perforation. CONCLUSION: Free air extending into the scrotum. No abscess. Ze Olvera MD on June 27, 2017 at 13:19 Board Certified Radiologist. This report was verified electronically.
[2017-06-27 16:00] VITALS: BP 115/53; PULSE 83; RESP 16; TEMP 98; O2SAT 97
[2017-06-27] MEDS: KETOROLAC TROMETHAMINE 30 MG/ML (IVP) VIAL IVP PRN (16:00)
[2017-06-27] MEDS: MORPHINE SULFATE 8 MG/ML INJ IV PUSH PRN (19:47)
--- NOTE | 2017-06-27 21:34 | MP ---
cc: NEMESIO SHIPLEY MD DATE OF SURGERY 06/27/17 PREOPERATIVE DIAGNOSES Acute appendicitis with perforation. POSTOPERATIVE DIAGNOSIS Acute appendicitis with perforation. PROCEDURE PERFORMED Laparoscopic appendectomy. SURGEON Dr. Ta Shipley CT SCAN SPECIAL PROCEDURES TECHNOLOGIST See OR sheet ANESTHESIA GETA. IV FLUIDS See anesthesia sheet ESTIMATED BLOOD LOSS 5 mL. DRAINS 10-Occitan round drain SPECIMENS Purulent fluid sent for culture and appendix sent for pathology. WOUND CLASSIFICATION Contaminated FINDINGS Very long distended appendix with localized perforation. COMPLICATIONS None. INDICATION The patient is a 27-year-old male who presents with 4-day history of abdominal pain. The pain was initially periumbilical and then localized to the right lower quadrant. The patient stated the pain continued to increase therefore prompted him to come to the emergency department with further evaluation with CT scan showing perforated appendicitis with abscess. Therefore, decision was made for operative intervention. PROCEDURE IN DETAIL The patient was taken to the operating suite, placed in supine position. He was prepped and draped in usual sterile fashion after induction of general endotracheal anesthesia. Brief time-out done stating correct patient, procedure and surgical site. All were in agreement with this. Attention first directed to the umbilicus where a stab [place] incision was made. A Veress needle placed. Abdomen insufflated to 15 mm pneumoperitoneum after saline drop test confirmed placement. A 5-mm Visiport and scope were introduced into the umbilicus. On cursory inspection no evidence of injury. Two other ports placed, one suprapubic and a left lower quadrant 12 mm port. The patient placed in Trendelenburg and airplaned to the left. On examination of the right lower quadrant, the appendix was noted to be extremity long distended and dilated and very much adherent to the anterior abdominal wall. The base of the appendix was relatively clean. The appendix was slowly dissected to the mesoappendix at the base. A 35 Endo-CASSIDY stapler was used to transect the base of the appendix. The appendix was then transected. The appendix was then peeled off the anterior abdominal wall. Multiple purulent like material came extruding out from the abscess cavity at the anterior abdominal wall. Suction irrigation used to drain this. The appendix were placed in EndoCatch bag and removed from the abdomen. A suction irrigation done in the right lower quadrant until the effluent was clear. Hemostasis obtained with electro Bovie cautery. Next, pneumoperitoneum was removed after placement of a 10-Occitan round drain in the right lower quadrant and secured with 2-0 nylon. Pneumoperitoneum was removed and the left lower quadrant incision was closed with a fascial layer of 3-0 Vicryl, 4-0 Monocryl subcuticular was then placed. Sterile dressing then placed. Lap and instrument counts were correct. Patient was extubated, taken to the PACU. MD PRIYANKA Virk/ /10:11 PM /9:28 PM RICARDO
--- NOTE | 2017-06-27 21:34 | MP ---
cc: NEMESIO SHIPLEY MD DATE OF SURGERY 06/27/17 PREOPERATIVE DIAGNOSES Acute appendicitis with perforation. POSTOPERATIVE DIAGNOSIS Acute appendicitis with perforation. PROCEDURE PERFORMED Laparoscopic appendectomy. SURGEON Dr. Ta Shipley BROADCAST OPERATIONS DIRECTOR See OR sheet ANESTHESIA GETA. IV FLUIDS See anesthesia sheet ESTIMATED BLOOD LOSS 5 mL. DRAINS 10-Persian round drain SPECIMENS Purulent fluid sent for culture and appendix sent for pathology. WOUND CLASSIFICATION Contaminated FINDINGS Very long distended appendix with localized perforation. COMPLICATIONS None. INDICATION The patient is a 27-year-old male who presents with 4-day history of abdominal pain. The pain was initially periumbilical and then localized to the right lower quadrant. The patient stated the pain continued to increase therefore prompted him to come to the emergency department with further evaluation with CT scan showing perforated appendicitis with abscess. Therefore, decision was made for operative intervention. PROCEDURE IN DETAIL The patient was taken to the operating suite, placed in supine position. He was prepped and draped in usual sterile fashion after induction of general endotracheal anesthesia. Brief time-out done stating correct patient, procedure and surgical site. All were in agreement with this. Attention first directed to the umbilicus where a stab [place] incision was made. A Veress needle placed. Abdomen insufflated to 15 mm pneumoperitoneum after saline drop test confirmed placement. A 5-mm Visiport and scope were introduced into the umbilicus. On cursory inspection no evidence of injury. Two other ports placed, one suprapubic and a left lower quadrant 12 mm port. The patient placed in Trendelenburg and airplaned to the left. On examination of the right lower quadrant, the appendix was noted to be extremity long distended and dilated and very much adherent to the anterior abdominal wall. The base of the appendix was relatively clean. The appendix was slowly dissected to the mesoappendix at the base. A 35 Endo-CASSIDY stapler was used to transect the base of the appendix. The appendix was then transected. The appendix was then peeled off the anterior abdominal wall. Multiple purulent like material came extruding out from the abscess cavity at the anterior abdominal wall. Suction irrigation used to drain this. The appendix were placed in EndoCatch bag and removed from the abdomen. A suction irrigation done in the right lower quadrant until the effluent was clear. Hemostasis obtained with electro Bovie cautery. Next, pneumoperitoneum was removed after placement of a 10-Persian round drain in the right lower quadrant and secured with 2-0 nylon. Pneumoperitoneum was removed and the left lower quadrant incision was closed with a fascial layer of 3-0 Vicryl, 4-0 Monocryl subcuticular was then placed. Sterile dressing then placed. Lap and instrument counts were correct. Patient was extubated, taken to the PACU. MD PRIYANKA Virk/ /10:11 PM /9:28 PM RICARDO
--- NOTE | 2017-06-27 21:34 | MP ---
cc: NEMESIO SHIPLEY MD DATE OF SURGERY 06/27/17 PREOPERATIVE DIAGNOSES Acute appendicitis with perforation. POSTOPERATIVE DIAGNOSIS Acute appendicitis with perforation. PROCEDURE PERFORMED Laparoscopic appendectomy. SURGEON Dr. Ta Shipley DIET AIDE See OR sheet ANESTHESIA GETA. IV FLUIDS See anesthesia sheet ESTIMATED BLOOD LOSS 5 mL. DRAINS 10-Albanian round drain SPECIMENS Purulent fluid sent for culture and appendix sent for pathology. WOUND CLASSIFICATION Contaminated FINDINGS Very long distended appendix with localized perforation. COMPLICATIONS None. INDICATION The patient is a 27-year-old male who presents with 4-day history of abdominal pain. The pain was initially periumbilical and then localized to the right lower quadrant. The patient stated the pain continued to increase therefore prompted him to come to the emergency department with further evaluation with CT scan showing perforated appendicitis with abscess. Therefore, decision was made for operative intervention. PROCEDURE IN DETAIL The patient was taken to the operating suite, placed in supine position. He was prepped and draped in usual sterile fashion after induction of general endotracheal anesthesia. Brief time-out done stating correct patient, procedure and surgical site. All were in agreement with this. Attention first directed to the umbilicus where a stab [place] incision was made. A Veress needle placed. Abdomen insufflated to 15 mm pneumoperitoneum after saline drop test confirmed placement. A 5-mm Visiport and scope were introduced into the umbilicus. On cursory inspection no evidence of injury. Two other ports placed, one suprapubic and a left lower quadrant 12 mm port. The patient placed in Trendelenburg and airplaned to the left. On examination of the right lower quadrant, the appendix was noted to be extremity long distended and dilated and very much adherent to the anterior abdominal wall. The base of the appendix was relatively clean. The appendix was slowly dissected to the mesoappendix at the base. A 35 Endo-CASSIDY stapler was used to transect the base of the appendix. The appendix was then transected. The appendix was then peeled off the anterior abdominal wall. Multiple purulent like material came extruding out from the abscess cavity at the anterior abdominal wall. Suction irrigation used to drain this. The appendix were placed in EndoCatch bag and removed from the abdomen. A suction irrigation done in the right lower quadrant until the effluent was clear. Hemostasis obtained with electro Bovie cautery. Next, pneumoperitoneum was removed after placement of a 10-Albanian round drain in the right lower quadrant and secured with 2-0 nylon. Pneumoperitoneum was removed and the left lower quadrant incision was closed with a fascial layer of 3-0 Vicryl, 4-0 Monocryl subcuticular was then placed. Sterile dressing then placed. Lap and instrument counts were correct. Patient was extubated, taken to the PACU. MD PRIYANKA Virk/ /10:11 PM /9:28 PM RICARDO
[2017-06-27 22:41] VITALS: BP 111/53; PULSE 66; RESP 20; TEMP 97.8; O2SAT 97
[2017-06-28] MEDS ORDERED: VANCOMYCIN INJ 2,000 MG in SODIUM CHLORID 0.9% 500 ML INJ 500 ML IV SCH ×2
[2017-06-28] MEDS: SODIUM CHLORIDE 0.9% FLUSH 10 ML FLUSH IV FLUSH PRN ×2 (00:47→05:03)
[2017-06-28] MEDS: KETOROLAC TROMETHAMINE 30 MG/ML (IVP) VIAL IVP PRN (00:47)
[2017-06-28 01:27] VITALS: BP 127/58; PULSE 88; RESP 20; TEMP 99.8; O2SAT 98
[2017-06-28] MEDS: MORPHINE SULFATE 8 MG/ML INJ IV PUSH PRN (05:03)
[2017-06-28] MEDS: PIPERACIL-TAZO 3.375 GM PREMIX 50 ML IV SCH ×3 (05:04→20:47)
[2017-06-28 08:30] VITALS: BP 132/63; PULSE 93; RESP 20; TEMP 99; O2SAT 99
[2017-06-28 08:59] LABS: AUTOMATED NEUTROPHIL # 4.9 TH/MM3 (1.8-7.7); BASOPHIL % 0.6 % (0.0-2.0); EOSINOPHIL # 0.1 TH/MM3 (0-0.4); EOSINOPHIL % 1.9 % (0.0-4.0); HEMOGLOBIN 13.9 GM/DL (13.0-17.0); LYMPH % 12.9 % (9.0-44.0); LYMPHOCYTE # 0.8 TH/MM3 (1.0-4.8); MEAN CELL VOLUME 86.8 FL (80.0-100.0); MEAN CORPUSCULAR HEMOGLOBIN 29.5 PG (27.0-34.0); MEAN PLATELET VOLUME 7.2 FL (7.0-11.0); MONOCYTE # 0.7 TH/MM3 (0-0.9); NEUT % 74.6 % (16.0-70.0); PLATELET COUNT 203 TH/MM3 (150-450); RED BLOOD COUNT 4.73 MIL/MM3 (4.50-5.90); WHITE BLOOD COUNT 6.5 TH/MM3 (4.0-11.0)
[2017-06-28] MEDS: SODIUM CHLORIDE 0.9% FLUSH 10 ML FLUSH IV FLUSH SCH ×2 (09:00→20:47)
[2017-06-28 09:08] LABS: CALCIUM 8.5 MG/DL (8.5-10.1)
[2017-06-28 09:09] LABS: BICARBONATE 26.1 MEQ/L (21.0-32.0)
[2017-06-28] MEDS: DOCUSATE SODIUM 100 MG CAP PO SCH ×2 (09:12→20:47)
[2017-06-28] MEDS: ACETAMINOPHEN/HYDROcodone 325 MG/5 MG TAB PO PRN ×2 (09:14→15:36)
[2017-06-28] MEDS: D5-NS + KCL 20 MEQ INJ 1,000 ML IV SCH ×2 (09:15→15:05)
[2017-06-28 10:43] VITALS: TEMP 100.3
--- NOTE | 2017-06-28 11:37 | PD.ID.CON ---
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 after dw radiologist it was concluded that most likely air in the scrotum is related to his prior surgery That point of view was also supported by urologist and CT findings Pt was started on admission on vanco and zosyn He has low grade fever He co difficulty urinating and disuria that started after his surgery He was initially retaining urine, requiring ruvalcaba, which is now discontinued Pt's pain and swelling improved significantly in the last 24 hrs No hematuria Had one liquid BM so far sice surgery Tolerating full liquid diest +Mild non productive cough He also co of getting red and itchy during vanco infusion Review of Systems Respiratory: COMPLAINS OF: Cough Gastrointestinal: COMPLAINS OF: Abdominal pain Genitourinary: COMPLAINS OF: Dysuria, Testicular Pain (L ), Testicular Swelling (L) Except as stated in HPI: all other systems reviewed are Neg Past Family Social History Allergies: Coded Allergies: clindamycin (Unverified Allergy, Severe, EDMUNDO'S SYNDROME, 06/26/17) vancomycin (Unverified Allergy, Severe, REDMANS SYNDROME, 06/26/17) Past Medical History kidney stones Past Surgical History lap appey 06/27 Active Ordered Medications Medications where reviewed in EMR Antibiotics Include: zosyn vanco Family History reviewd Non contributory to current condition Social History No Tobacco. No ETOH. No Illicit Drugs. Physical Exam Vital Signs Vital Signs Date Time Temp Pulse Resp B/P (MAP) Pulse Ox O2 Delivery O2 Flow Rate FiO2 06/28/17 10:43 100.3 06/28/17 10:14 18 06/28/17 08:30 99.0 93 20 132/63 (86) 99 06/28/17 06:03 20 06/28/17 01:47 20 06/28/17 01:27 99.8 88 20 127/58 (81) 98 06/27/17 22:41 97.8 66 20 111/53 (72) 97 06/27/17 16:00 98.0 83 16 115/53 (73) 97 06/27/17 12:00 97.3 73 16 126/69 (88) 100 Physical Exam CONSTITUTIONAL/GENERAL: This is an adequately nourished patient, in no apparent distress. TUBES/LINES/DRAINS: SKIN: No jaundice, rashes, or lesions. Skin temperature appropriate. Not diaphoretic. HEAD: Atraumatic. Normocephalic. EYES: Pupils equal and round and reactive. Extraocular motions intact. No scleral icterus. No injection or drainage. Fundi not examined. ENT: Hearing grossly normal. Nose without bleeding or purulent drainage. Throat without visible erythema, exudates, masses, or lesions. NECK: Trachea midline. Supple, nontender. No palpable thyroid enlargement or nodularity. CARDIOVASCULAR: Regular rate and rhythm without murmurs, gallops, or rubs. No JVD. Peripheral pulses symmetric. RESPIRATORY/CHEST: Symmetric, unlabored respirations. Clear to auscultation. Breath sounds equal bilaterally. No wheezes, rales, or rhonchi. GASTROINTESTINAL: Abdomen soft,mildly -tender,mildly distended. Naeem in place with serosang dc No hepato-splenomegaly, or palpable masses. No guarding. Bowel sounds present. GENITOURINARY: Without palpable bladder distension. circumside penis - nremarkable, no d/c skin w/o redness or swelling L testicle tender to palpation and mildly enlarged No crepitus No inguinal lympahdenopathy MUSCULOSKELETAL: Extremities without clubbing, cyanosis, or edema. No joint tenderness or effusion noted. No calf tenderness. No mottling or clubbing. LYMPHATICS: No palpable cervical or supraclavicular adenopathy. NEUROLOGICAL: Awake and alert. Motor and sensory grossly within normal limits. Follows commands. Clear speech . Moves all extremities. PSYCHIATRIC: No obvious anxiety/depression. no apparent hallucinations or other psychotic thought process. Laboratory Laboratory Tests Test 06/28/17 08:48 White Blood Count 6.5 Red Blood Count 4.73 Hemoglobin 13.9 Hematocrit 41.0 Mean Corpuscular Volume 86.8 Mean Corpuscular Hemoglobin 29.5 Mean Corpuscular Hemoglobin Concent 34.0 Red Cell Distribution Width 12.0 Platelet Count 203 Mean Platelet Volume 7.2 Neutrophils (%) (Auto) 74.6 Lymphocytes (%) (Auto) 12.9 Monocytes (%) (Auto) 10.0 Eosinophils (%) (Auto) 1.9 Basophils (%) (Auto) 0.6 Neutrophils # (Auto) 4.9 Lymphocytes # (Auto) 0.8 Monocytes # (Auto) 0.7 Eosinophils # (Auto) 0.1 Basophils # (Auto) 0.0 CBC Comment DIFF FINAL Differential Comment Blood Urea Nitrogen 4 Creatinine 1.00 Random Glucose 82 Calcium Level 8.5 Sodium Level 141 Potassium Level 3.8 Chloride Level 107 Carbon Dioxide Level 26.1 Anion Gap 8 Estimat Glomerular Filtration Rate 90 Date/Time Source Procedure Growth Status 06/26/17 14:25 Abscess Abdomen Fungal Smear - Final NO FUNGAL ELEMENTS SEEN. Resulted 06/26/17 14:25 Abscess Abdomen Fungal Culture Pending Resulted Result Diagram: 06/28/1748 06/28/17 0848 Imaging Last Impressions Scrotum Ultrasound 06/27/17 0000 Signed Impressions: Service Date/Time: Tuesday, June 27, 2017 08:56 - 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 2. Limited evaluation of the left epididymis due to scrotal wall emphysema. 3. Unremarkable sonographic appearance of the left testicle with symmetrical testicular blood flow. Guevara Emerson MD ADDENDUM: Additional history of appendectomy has been provided. Given recent appendectomy , the scrotal wall emphysema is likely postsurgical. Guevara Emerson MD Pelvis CT 06/27/17 0000 Signed Impressions: Service Date/Time: Tuesday, June 27, 2017 12:52 - CONCLUSION: Free air extending into the scrotum. No abscess. Ze Olvera MD Abdomen/Pelvis CT 06/26/17 0831 Signed Impressions: Service Date/Time: Monday, June 26, 2017 08:56 - CONCLUSION: 1. Dilated appendix with periappendiceal fluid and inflammatory changes as well as tiny calcification suggesting appendicolith. The findings are consistent with acute appendicitis with probable perforation. Findings were called immediately to Dr. Zuñiga at 9:25 AM on 06/26/17. There is a small collection of free fluid within the pelvis. 2. Mild splenomegaly. Anthony Mora MD Assessment and Plan Assessment and Plan sp ruptured appendix and periappendicenal abscess No e/o Fourinier's gangrene - findings are c/w his recent lap appey Low grade fver ? post op Kidney disaes Urinary retention, disuria - r/o UTI chk UA, C+S cont zosyn for now dc vancomycin switch tomorrow to po augmentin if remains afebrile Discussed Condition With Earnest Canales RN dw spouse Sera Nelson MD Jun 28, 2017 11:37
--- NOTE | 2017-06-28 11:58 | HHI.PR ---
Subjective Subjective Notes no acute issues, tolerating liquids, pain better, low grade fever Objective Vitals/I&O Vital Signs Date Time Temp Pulse Resp B/P (MAP) Pulse Ox O2 Delivery O2 Flow Rate FiO2 06/28/17 10:43 100.3 06/28/17 10:14 18 06/28/17 08:30 93 132/63 (86) 99 06/26/17 16:00 Room Air 06/26/17 14:40 3 Labs Laboratory Tests Test 06/28/17 08:48 White Blood Count 6.5 Red Blood Count 4.73 Hemoglobin 13.9 Hematocrit 41.0 Mean Corpuscular Volume 86.8 Mean Corpuscular Hemoglobin 29.5 Mean Corpuscular Hemoglobin Concent 34.0 Red Cell Distribution Width 12.0 Platelet Count 203 Mean Platelet Volume 7.2 Neutrophils (%) (Auto) 74.6 Lymphocytes (%) (Auto) 12.9 Monocytes (%) (Auto) 10.0 Eosinophils (%) (Auto) 1.9 Basophils (%) (Auto) 0.6 Neutrophils # (Auto) 4.9 Lymphocytes # (Auto) 0.8 Monocytes # (Auto) 0.7 Eosinophils # (Auto) 0.1 Basophils # (Auto) 0.0 CBC Comment DIFF FINAL Differential Comment Blood Urea Nitrogen 4 Creatinine 1.00 Random Glucose 82 Calcium Level 8.5 Sodium Level 141 Potassium Level 3.8 Chloride Level 107 Carbon Dioxide Level 26.1 Anion Gap 8 Estimat Glomerular Filtration Rate 90 Date/Time Source Procedure Growth Status 06/26/17 14:25 Abscess Abdomen Fungal Smear - Final NO FUNGAL ELEMENTS SEEN. Resulted 06/26/17 14:25 Abscess Abdomen Fungal Culture Pending Resulted Abdomen: Other (soft incisional tenderness iggy serous, scrotum mild ttp left side,) A/P Assessment and Plan POD 2 lap appy- perforated, urinary retention, left scrotal crepitus us with good testicular flow questionable fourniers gangrene- likely post op pneumoscrotum from laparoscopic surgery PLAN- low grade fever encourage IS iv abx pain control advance diet to reg diet d/c ruvalcaba appreciated urology input appreciate ID input oob IS possible d/c tomorrow Geoff Shipley MD Jun 28, 2017 11:58
[2017-06-28 12:00] VITALS: BP 124/58; PULSE 80; RESP 20; TEMP 97.8; O2SAT 94
[2017-06-28 12:03] LABS: BILIRUBIN, URINE NEG (NEG); BLOOD, URINE SMALL (NEG); GLUCOSE,URINE NEG (NEG); KETONE, URINE NEG (NEG); NITRITE,URINE NEG (NEG); PH, URINE 5.5 (5.0-8.5); URINE LEUKOCYTE ESTERASE NEG (NEG)
[2017-06-28 12:07] LABS: URINE COLOR STRAW (YELLW/STRAW)
[2017-06-28 12:09] LABS: RBC, URINE 0-3 /hpf (0-3); SQUAMOUS EPITHELIAL CELL URINE 0-5 /hpf (0-5)
[2017-06-28 15:53] VITALS: BP 128/59; PULSE 88; RESP 20; TEMP 97.8; O2SAT 100
--- NOTE | 2017-06-28 17:34 | HHI.PR ---
Subjective Patient symptoms today WBC improved. Mild low grade fever noted. Pain improved Objective Vital Signs Vital Signs Date Time Temp Pulse Resp B/P (MAP) Pulse Ox O2 Delivery O2 Flow Rate FiO2 06/28/17 16:36 18 06/28/17 15:53 97.8 88 20 128/59 (82) 100 06/28/17 12:00 97.8 80 20 124/58 (80) 94 06/28/17 10:43 100.3 06/28/17 08:30 99.0 93 20 132/63 (86) 99 06/28/17 06:03 20 06/28/17 01:47 20 06/28/17 01:27 99.8 88 20 127/58 (81) 98 06/27/17 22:41 97.8 66 20 111/53 (72) 97 Intake & Output 06/28/17 06/28/17 07:00 19:00 Intake Total 3100 ml 2160 ml Output Total 2700 ml 80 ml Balance 400 ml 2080 ml Intake Oral 480 ml 2160 ml IV Total 2620 ml Output Urine Total 2650 ml Drainage Total 50 ml 80 ml # Voids 4 # Bowel Movements 2 Result Diagram: 06/28/17 0848 06/28/17 0848 Medications and IVs Current Medications Medications (Trade) Dose Ordered Sig/Mary Kay Route Start Time Stop Time Status Last Admin (NS Flush) 2 ml UNSCH PRN IV FLUSH 06/26/17 08:45 06/28/17 05:03 Lactated Ringer's 1,000 ml @ 30 mls/hr Q24H PRN IV 06/26/17 12:00 06/29/17 11:59 06/26/17 11:30 Sodium Chloride 500 ml @ 30 mls/hr [id number] PRN IV 06/26/17 12:00 06/29/17 11:59 (Lopressor) 25 mg SERVICE TECHNICIAN PRN PO 06/26/17 12:00 06/29/17 11:59 (Betadine 5% Antisepsis Kit) 1 applic SERVICE TECHNICIAN PRN EACH NARE 06/26/17 12:00 06/29/17 11:59 (Chlorhexidine 2% Cloth) 3 pack SERVICE TECHNICIAN PRN TOPICAL 06/26/17 12:00 06/29/17 11:59 (NovoLIN R INJ) See Protocol Table ... SERVICE TECHNICIAN PRN SQ 06/26/17 12:00 06/29/17 11:59 Piperacillin Sod/ Tazobactam Sod 50 ml @ 100 mls/hr SERVICE TECHNICIAN IV 06/26/17 13:15 Potassium Chloride/Dextrose/ Sod Cl 1,000 ml @ 125 mls/hr Q8H IV 06/26/17 13:33 06/28/17 15:05 (NS Flush) 2 ml UNSCH PRN IV FLUSH 06/26/17 13:45 (NS Flush) 2 ml BID IV FLUSH 06/26/17 13:45 06/27/17 19:45 (Toradol Inj) 15 mg Q6H PRN IVP 06/26/17 13:45 07/01/17 13:44 06/28/17 00:47 ([place] 5-325 Mg) 1 tab Q4H PRN PO 06/26/17 13:45 ([place] 5-325 Mg) 2 tab Q4H PRN PO 06/26/17 13:45 06/28/17 15:36 (Morphine Inj) 5 mg Q2H PRN IV PUSH 06/26/17 13:45 06/28/17 05:03 (Zofran Inj) 4 mg Q4H PRN IV PUSH 06/26/17 13:45 06/28/17 10:07 (Colace) 100 mg BID PO 06/26/17 13:45 06/28/17 09:12 Piperacillin Sod/ Tazobactam Sod 50 ml @ 100 mls/hr Q8HR IV 06/26/17 22:00 06/28/17 15:03 Assessment and Plan Problem List: (1) Scrotal swelling ICD Code: N50.89 - Other specified disorders of the male genital organs (2) Testicular pain, left ICD Code: N50.812 - Left testicular pain (3) Acute fulminating appendicitis with perforation and peritonitis ICD Code: K35.3 - Acute appendicitis with localized peritonitis Status: Acute Assessment and Plan -Patient with no evidence of tiara's Gangrene at this time -Likely epididymo-orchitis -Recommend continued antibiotics, Augmentin or Bactrim is adequate -Patient clear for discharge from Urology standpoint. -Follow-up in clinic this week -Please call with questions Connor Anthony MD Jun 28, 2017 17:34
--- NOTE | 2017-06-28 17:34 | HHI.PR ---
Subjective Patient symptoms today WBC improved. Mild low grade fever noted. Pain improved Objective Vital Signs Vital Signs Date Time Temp Pulse Resp B/P (MAP) Pulse Ox O2 Delivery O2 Flow Rate FiO2 06/28/17 16:36 18 06/28/17 15:53 97.8 88 20 128/59 (82) 100 06/28/17 12:00 97.8 80 20 124/58 (80) 94 06/28/17 10:43 100.3 06/28/17 08:30 99.0 93 20 132/63 (86) 99 06/28/17 06:03 20 06/28/17 01:47 20 06/28/17 01:27 99.8 88 20 127/58 (81) 98 06/27/17 22:41 97.8 66 20 111/53 (72) 97 Intake & Output 06/28/17 06/28/17 07:00 19:00 Intake Total 3100 ml 2160 ml Output Total 2700 ml 80 ml Balance 400 ml 2080 ml Intake Oral 480 ml 2160 ml IV Total 2620 ml Output Urine Total 2650 ml Drainage Total 50 ml 80 ml # Voids 4 # Bowel Movements 2 Result Diagram: 06/28/17 0848 06/28/17 0848 Medications and IVs Current Medications Medications (Trade) Dose Ordered Sig/Mary Kay Route Start Time Stop Time Status Last Admin (NS Flush) 2 ml UNSCH PRN IV FLUSH 06/26/17 08:45 06/28/17 05:03 Lactated Ringer's 1,000 ml @ 30 mls/hr Q24H PRN IV 06/26/17 12:00 06/29/17 11:59 06/26/17 11:30 Sodium Chloride 500 ml @ 30 mls/hr [id number] PRN IV 06/26/17 12:00 06/29/17 11:59 (Lopressor) 25 mg SITE SUPERINTENDENT PRN PO 06/26/17 12:00 06/29/17 11:59 (Betadine 5% Antisepsis Kit) 1 applic SITE SUPERINTENDENT PRN EACH NARE 06/26/17 12:00 06/29/17 11:59 (Chlorhexidine 2% Cloth) 3 pack SITE SUPERINTENDENT PRN TOPICAL 06/26/17 12:00 06/29/17 11:59 (NovoLIN R INJ) See Protocol Table ... SITE SUPERINTENDENT PRN SQ 06/26/17 12:00 06/29/17 11:59 Piperacillin Sod/ Tazobactam Sod 50 ml @ 100 mls/hr SITE SUPERINTENDENT IV 06/26/17 13:15 Potassium Chloride/Dextrose/ Sod Cl 1,000 ml @ 125 mls/hr Q8H IV 06/26/17 13:33 06/28/17 15:05 (NS Flush) 2 ml UNSCH PRN IV FLUSH 06/26/17 13:45 (NS Flush) 2 ml BID IV FLUSH 06/26/17 13:45 06/27/17 19:45 (Toradol Inj) 15 mg Q6H PRN IVP 06/26/17 13:45 07/01/17 13:44 06/28/17 00:47 ([place] 5-325 Mg) 1 tab Q4H PRN PO 06/26/17 13:45 ([place] 5-325 Mg) 2 tab Q4H PRN PO 06/26/17 13:45 06/28/17 15:36 (Morphine Inj) 5 mg Q2H PRN IV PUSH 06/26/17 13:45 06/28/17 05:03 (Zofran Inj) 4 mg Q4H PRN IV PUSH 06/26/17 13:45 06/28/17 10:07 (Colace) 100 mg BID PO 06/26/17 13:45 06/28/17 09:12 Piperacillin Sod/ Tazobactam Sod 50 ml @ 100 mls/hr Q8HR IV 06/26/17 22:00 06/28/17 15:03 Assessment and Plan Problem List: (1) Scrotal swelling ICD Code: N50.89 - Other specified disorders of the male genital organs (2) Testicular pain, left ICD Code: N50.812 - Left testicular pain (3) Acute fulminating appendicitis with perforation and peritonitis ICD Code: K35.3 - Acute appendicitis with localized peritonitis Status: Acute Assessment and Plan -Patient with no evidence of tiara's Gangrene at this time -Likely epididymo-orchitis -Recommend continued antibiotics, Augmentin or Bactrim is adequate -Patient clear for discharge from Urology standpoint. -Follow-up in clinic this week -Please call with questions Connor Anthony MD Jun 28, 2017 17:34
--- NOTE | 2017-06-28 17:34 | HHI.PR ---
Subjective Patient symptoms today WBC improved. Mild low grade fever noted. Pain improved Objective Vital Signs Vital Signs Date Time Temp Pulse Resp B/P (MAP) Pulse Ox O2 Delivery O2 Flow Rate FiO2 06/28/17 16:36 18 06/28/17 15:53 97.8 88 20 128/59 (82) 100 06/28/17 12:00 97.8 80 20 124/58 (80) 94 06/28/17 10:43 100.3 06/28/17 08:30 99.0 93 20 132/63 (86) 99 06/28/17 06:03 20 06/28/17 01:47 20 06/28/17 01:27 99.8 88 20 127/58 (81) 98 06/27/17 22:41 97.8 66 20 111/53 (72) 97 Intake & Output 06/28/17 06/28/17 07:00 19:00 Intake Total 3100 ml 2160 ml Output Total 2700 ml 80 ml Balance 400 ml 2080 ml Intake Oral 480 ml 2160 ml IV Total 2620 ml Output Urine Total 2650 ml Drainage Total 50 ml 80 ml # Voids 4 # Bowel Movements 2 Result Diagram: 06/28/17 0848 06/28/17 0848 Medications and IVs Current Medications Medications (Trade) Dose Ordered Sig/Mary Kay Route Start Time Stop Time Status Last Admin (NS Flush) 2 ml UNSCH PRN IV FLUSH 06/26/17 08:45 06/28/17 05:03 Lactated Ringer's 1,000 ml @ 30 mls/hr Q24H PRN IV 06/26/17 12:00 06/29/17 11:59 06/26/17 11:30 Sodium Chloride 500 ml @ 30 mls/hr [id number] PRN IV 06/26/17 12:00 06/29/17 11:59 (Lopressor) 25 mg FOUNDATION STAGE TEACHER PRN PO 06/26/17 12:00 06/29/17 11:59 (Betadine 5% Antisepsis Kit) 1 applic FOUNDATION STAGE TEACHER PRN EACH NARE 06/26/17 12:00 06/29/17 11:59 (Chlorhexidine 2% Cloth) 3 pack FOUNDATION STAGE TEACHER PRN TOPICAL 06/26/17 12:00 06/29/17 11:59 (NovoLIN R INJ) See Protocol Table ... FOUNDATION STAGE TEACHER PRN SQ 06/26/17 12:00 06/29/17 11:59 Piperacillin Sod/ Tazobactam Sod 50 ml @ 100 mls/hr FOUNDATION STAGE TEACHER IV 06/26/17 13:15 Potassium Chloride/Dextrose/ Sod Cl 1,000 ml @ 125 mls/hr Q8H IV 06/26/17 13:33 06/28/17 15:05 (NS Flush) 2 ml UNSCH PRN IV FLUSH 06/26/17 13:45 (NS Flush) 2 ml BID IV FLUSH 06/26/17 13:45 06/27/17 19:45 (Toradol Inj) 15 mg Q6H PRN IVP 06/26/17 13:45 07/01/17 13:44 06/28/17 00:47 ([place] 5-325 Mg) 1 tab Q4H PRN PO 06/26/17 13:45 ([place] 5-325 Mg) 2 tab Q4H PRN PO 06/26/17 13:45 06/28/17 15:36 (Morphine Inj) 5 mg Q2H PRN IV PUSH 06/26/17 13:45 06/28/17 05:03 (Zofran Inj) 4 mg Q4H PRN IV PUSH 06/26/17 13:45 06/28/17 10:07 (Colace) 100 mg BID PO 06/26/17 13:45 06/28/17 09:12 Piperacillin Sod/ Tazobactam Sod 50 ml @ 100 mls/hr Q8HR IV 06/26/17 22:00 06/28/17 15:03 Assessment and Plan Problem List: (1) Scrotal swelling ICD Code: N50.89 - Other specified disorders of the male genital organs (2) Testicular pain, left ICD Code: N50.812 - Left testicular pain (3) Acute fulminating appendicitis with perforation and peritonitis ICD Code: K35.3 - Acute appendicitis with localized peritonitis Status: Acute Assessment and Plan -Patient with no evidence of tiara's Gangrene at this time -Likely epididymo-orchitis -Recommend continued antibiotics, Augmentin or Bactrim is adequate -Patient clear for discharge from Urology standpoint. -Follow-up in clinic this week -Please call with questions Connor Anthony MD Jun 28, 2017 17:34
[2017-06-28 21:46] VITALS: BP 124/57; PULSE 83; RESP 21; TEMP 99.1; O2SAT 97
[2017-06-28] MEDS ORDERED: PHARMACY ORDERED LAB ONE (23:45)
[2017-06-29] VITALS: BP 122/64; PULSE 82; RESP 20; TEMP 98.4; O2SAT 100
[2017-06-29] MEDS: SODIUM CHLORIDE 0.9% FLUSH 10 ML FLUSH IV FLUSH PRN (01:11)
[2017-06-29] MEDS: KETOROLAC TROMETHAMINE 30 MG/ML (IVP) VIAL IVP PRN (01:11)
[2017-06-29] MEDS: D5-NS + KCL 20 MEQ INJ 1,000 ML IV SCH (01:11)
[2017-06-29] MEDS: PIPERACIL-TAZO 3.375 GM PREMIX 50 ML IV SCH (04:51)
[2017-06-29] MEDS: SODIUM CHLORIDE 0.9% FLUSH 10 ML FLUSH IV FLUSH SCH (07:27)
[2017-06-29] MEDS ORDERED: AMOX875T2 PO (07:29)
[2017-06-29 08:02] VITALS: BP 130/64; PULSE 71; RESP 19; TEMP 98; O2SAT 100
[2017-06-29] MEDS: DOCUSATE SODIUM 100 MG CAP PO SCH (08:09)
[2017-06-29] MEDS ORDERED: AMOXICILLIN/CLAVULANATE K 875 MG TAB PO SCH (09:00)
--- NOTE | 2017-06-29 12:47 | HHI.DS ---
Discharge Summary Admission Date Jun 26, 2017 at 09:41 Discharge Date: Jun 29, 2017 Admitting Diagnosis acute appendicitis with perforation Brief History 27 year old male s/p lap appy- perforated, urinary retention, left scrotal crepitus us with good testicular flow questionable fourniers gangrene- likely post op pneumoscrotum from laparoscopic surgery CBC/BMP: 06/28/17 0848 06/28/17 0848 Significant Findings Laboratory Tests Test 06/27/17 06:40 06/28/17 08:48 06/28/17 11:55 Red Blood Count 4.27 MIL/MM3 (4.50-5.90) Hemoglobin 12.7 GM/DL (13.0-17.0) Hematocrit 36.8 % (39.0-51.0) Red Cell Distribution Width 11.4 % (11.6-17.2) Neutrophils (%) (Auto) 78.8 % (16.0-70.0) 74.6 % (16.0-70.0) Monocytes (%) (Auto) 8.6 % (0.0-8.0) 10.0 % (0.0-8.0) Neutrophils # (Auto) 7.9 TH/MM3 (1.8-7.7) Calcium Level 8.4 MG/DL (8.5-10.1) Lymphocytes # (Auto) 0.8 TH/MM3 (1.0-4.8) Blood Urea Nitrogen 4 MG/DL (7-18) Urine Occult Blood SMALL (NEG) PE at Discharge Up to chair Cardio: RRR Resp: CTAB Abd: lap sites c/d/i; YULI with ss drainage Hospital Course This is a 27 year old male s/p lap appy; perforated. The patient had post op urinary retention and left scrotal crepitus and concern for Janice's Gangrene. The patient was evaluated by Dr. Anthony and cleared for DC. The patient was able to tolerate a regular diet. The patient's pain was controlled using oral pain medications. The patient was provided with a prescription for Augmentin and Percocet. The YULI drain was removed prior to DC. The patient will follow up in the office. Pt Condition on Discharge: Good Discharge Disposition: Discharge Home Discharge Instructions DIET: Follow Instructions for: As Tolerated, No Restrictions Activities you can perform: See Additionl Instruction Other Activity Instructions: Okay to shower; pat Nara Deutsch Jun 29, 2017 12:46
== END 2017-06-29 09:50 | disposition home or self-care (01) | DRG 340 ==
LOC: PHED 07:53 → PHEDA 09:41 → PH3A 10:46
PROVIDERS: ADMIT Surgery; ATTEND Surgery
PROC: 0DTJ4ZZ Resection of Appendix, Percutaneous Endoscopic Approach (ICD-10-PCS; principal; 2017-06-26 13:05)
DX: K35.3 Acute appendicitis with localized peritonitis (principal); N45.3 Epididymo-orchitis; R33.9 Retention of urine, unspecified; N99.89 Other postprocedural complications and disorders of genitourinary system; N50.89 Other specified disorders of the male genital organs; Z85.71 Personal history of Hodgkin lymphoma; Z92.21 Personal history of antineoplastic chemotherapy; Z87.442 Personal history of urinary calculi
CPT/HCPCS: 72192; 74177; 76870; 80048; 81001; 85025; 85610; 85730; 87015; 87070; 87102; 87116; 87186; 87205; 87206; 88304; 93975; 94150; 96365; 96375; J0131; J0295; J1885; J2270; J2405; J2543; J3010; J3370; J3480; J7030; J7040; J7050; J7120; Q9967

== ENCOUNTER 2017-08-01 15:51 | Emergency (ER) | payer MEDICAID ==
[~2017-08-01] VITALS: Ht 190.5 cm; Wt 118.6 kg
[~2017-08-01 15:51] MED LIST changes: +AMOX875T2 PO; -ONDA1TAB16 PO; -PERC5TAB12 PO
[2017-08-01 16:01] VITALS: BP 154/70; PULSE 70; RESP 16; TEMP 98.6; O2SAT 99
--- NOTE | 2017-08-01 17:32 | RADRPT ---
EXAM DATE/TIME: 08/01/2017 17:15 [facility] COMPARISON: No previous studies available for comparison. INDICATIONS : Right knee pain after dancing last night MEDICAL HISTORY : None. SURGICAL HISTORY : None. ENCOUNTER: Initial ACUITY: 1 day PAIN SCORE: 10/10 LOCATION: Right knee FINDINGS: Four view examination of the right knee demonstrates no evidence of fracture or dislocation. Bony mi neralization is normal. The articular surfaces are intact. The suprapatellar soft tissues have a no rmal configuration. CONCLUSION: Normal examination for a patient of this age. Chirag Black MD on August 01, 2017 at 17:29 Board Certified Radiologist. This report was verified electronically.
[2017-08-01] MEDS ORDERED: IBUP1TAB7 PO (17:51)
--- NOTE | 2017-08-01 17:51 | PD ---
HPI Chief Complaint: Injury Time Seen by Provider: 16:49 Travel History International Travel<30 days: No Contact w/Intl Traveler<30days: No Traveled to known affect area: No History of Present Illness HPI 27-year-old male here with right knee pain. He reports yesterday evening while dancing he twisted and fell to the ground. He has pain medial aspect of the knee difficulty extending the leg straight and weightbearing. He denies paresthesia or weakness in the extremity. Symptom severity is moderate. Alleviated with rest. 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) Cardiovascular Problems: No Chemotherapy: Yes (6 YEARS AGO-HODGKINS LYMPHOMA) Diminished Hearing: No Gastrointestinal Disorders: Yes (ca tumor) Implanted Vascular Access Dvce: No Kidney Stones: Yes Musculoskeletal: No Neurologic: No Psychiatric: Yes Respiratory: No Integumentary: Yes (HEAD TO HANDS A CHILD) Tetanus Vaccination: < 5 Years Past Surgical History Abdominal Surgery: Yes (2 abd sx for removal of tumors) AICD: No Appendectomy: Yes Arteriovenous Shunt: No Insulin Pump: No Joint Replacement: No Pacemaker: No Thoracic Surgery: Yes (LYMPH NODE REMOVAL rigth axilla) Other Surgery: Yes (2 PORT REMOVAL ) Social History Alcohol Use: No Tobacco Use: No Substance Use: No Allergies-Medications (Allergen,Severity, Reaction): Coded Allergies: clindamycin (Unverified Allergy, Severe, EDMUNDO'S SYNDROME, 08/01/17) vancomycin (Unverified Allergy, Severe, REDMANS SYNDROME, 08/01/17) Reported Meds & Prescriptions Reported Meds & Active Scripts Active No Active Prescriptions or Reported Medications Review of Systems Except as stated in HPI: all other systems reviewed are Neg Physical Exam Narrative GENERAL: Alert well-appearing male. SKIN: Warm and dry. HEAD: Normocephalic. EYES: No scleral icterus. No injection or drainage. NECK: Supple, trachea midline. No JVD or lymphadenopathy. MUSCULOSKELETAL: No cyanosis, or edema. Right lower extremity: Tenderness to the medial aspect of the knee. Joint is stable. No effusion. 2+ distal pulses. Brisk cap refill. Data Data Last Documented VS Vital Signs Date Time Temp Pulse Resp B/P (MAP) Pulse Ox O2 Delivery O2 Flow Rate FiO2 08/01/17 16:01 98.6 70 16 154/70 (98) 99 Orders Orders Knee, Complete (4vws) (08/01/17 ) [facility] Medical Decision Making Medical Screen Exam Complete: Yes Emergency Medical Condition: Yes Differential Diagnosis Knee sprain/strain, fracture, contusion Narrative Course 27-year-old male with right knee pain status post twisting injury last night. The joint is stable. The extremity is neurovascularly intact. X-rays negative for fracture. Patient be treated for knee sprain. Diagnosis Primary Impression: Knee sprain Qualified Codes: S83.411A - Sprain of medial collateral ligament of right knee , initial encounter Referrals: Primary Care Physician Patient Instructions: General Instructions Departure Forms: Tests/Procedures Scripts Ibuprofen (Ibuprofen) 800 Mg Tab 800 MG PO Q6HR Y for PAIN, #40 TAB 0 Refills Prov: Lori Clifton 08/01/17 Disposition: 01 DISCHARGE HOME Condition: Stable Lori Clifton Aug 01, 2017 17:51
== END 2017-08-01 18:01 | disposition home or self-care (01) ==
LOC: PHEFT 15:51
DX: S83.411A Sprain of medial collateral ligament of right knee, initial encounter (principal); Z85.72 Personal history of non-Hodgkin lymphomas; Z87.19 Personal history of other diseases of the digestive system; Z87.442 Personal history of urinary calculi; W18.39XA Other fall on same level, initial encounter; X50.1XXA Overexertion from prolonged static or awkward postures, initial encounter; Y93.41 Activity, dancing
CPT/HCPCS: 73564; 99283

== ENCOUNTER 2018-02-03 20:40 | Emergency (ER) | payer SELFPAY ==
[~2018-02-03] VITALS: Ht 190.5 cm; Wt 121.0 kg
[~2018-02-03 20:40] MED LIST changes: -AMOX875T2 PO; +IBUP1TAB7 PO
[2018-02-03 20:50] VITALS: BP 149/74; PULSE 90; RESP 18; TEMP 99.5; O2SAT 99
[2018-02-03] MEDS ORDERED: SODIUM CHLOR 0.9% 1000 ML INJ 1,000 ML IV ONE (21:15)
[2018-02-03] MEDS ORDERED: KETOROLAC TROMETHAMINE 30 MG/ML (IVP) VIAL IV PUSH ONE (21:15)
--- NOTE | 2018-02-03 21:18 | PD ---
HPI Chief Complaint: Headache Time Seen by Provider: 21:01 Travel History International Travel<30 days: No Contact w/Intl Traveler<30days: No Traveled to known affect area: No History of Present Illness HPI 28yo M with no significant PMH presents to the ED with multiple complaints. Pt has been feeling soreness in his muscles as well as headache, throat pain, right ear fullness and generalized weakness today. 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 Denies any fever, chest pain, sob, cough, vomiting, abdominal pain, focal weakness or numbness. 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) Cardiovascular Problems: No Chemotherapy: Yes (last time 2007) Diminished Hearing: No Gastrointestinal Disorders: Yes (ca tumor) Implanted Vascular Access Dvce: No Kidney Stones: Yes Musculoskeletal: No Neurologic: No Psychiatric: Yes Respiratory: No Integumentary: Yes (HEAD TO HANDS A CHILD) Tetanus Vaccination: < 5 Years Influenza Vaccination: No Past Surgical History Abdominal Surgery: Yes (2 abd sx for removal of tumors) AICD: No Appendectomy: Yes Arteriovenous Shunt: No Insulin Pump: No Joint Replacement: No Pacemaker: No Thoracic Surgery: Yes (LYMPH NODE REMOVAL rigth axilla) Other Surgery: Yes (2 PORT REMOVAL ) Social History Alcohol Use: Yes (occass.) Tobacco Use: No Substance Use: No Allergies-Medications (Allergen,Severity, Reaction): Coded Allergies: clindamycin (Unverified Allergy, Severe, EDMUNDO'S SYNDROME, 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 SKIN: Focused skin assessment warm/dry. HEAD: Atraumatic. Normocephalic. EYES: Pupils equal and round at 3mm bilaterally. EOMI. ENT: Mild erythema in uvula. Mild bilateral tonsillar exudates. TM wnl bilaterally. NECK: No nuchal rigidity. CARDIOVASCULAR: Regular rate and rhythm. No murmur appreciated. RESPIRATORY: No accessory muscle use. Clear to auscultation. Breath sounds equal bilaterally. GASTROINTESTINAL: Abdomen soft, non-tender, nondistended. MUSCULOSKELETAL: No obvious deformities. No clubbing. No cyanosis. No edema. NEUROLOGICAL: Awake and alert. No obvious cranial nerve deficits. Motor grossly within normal limits in all extremities. Sensation intact. Normal speech. PSYCHIATRIC: Appropriate mood and affect; insight and judgment normal. Data Data Last Documented VS Vital Signs Date Time Temp Pulse Resp B/P (MAP) Pulse Ox O2 Delivery O2 Flow Rate FiO2 02/03/18 22:15 85 16 119/64 (82) 98 Room Air 02/03/18 20:50 99.5 Orders Orders Ketorolac Inj (Toradol Inj) (02/03/18 21:15) Basic Metabolic Panel (Bmp) (02/03/18 21:10) Creatine Kinase (Cpk) (02/03/18 21:10) Sodium Chlor 0.9% 1000 Ml Inj (Ns 1000 M (02/03/18 21:15) Group A Rapid Strep Screen (02/03/18 21:10) Influenzae A/B Antigen (02/03/18 21:10) Strep Culture (Group A) (02/03/18 21:02) Prochlorperazine Inj (Compazine Inj) (02/03/18 22:15) Labs Laboratory Tests Test 02/03/18 21:28 Blood Urea Nitrogen 9 MG/DL Creatinine 0.94 MG/DL Random Glucose 88 MG/DL Calcium Level 8.8 MG/DL Sodium Level 139 MEQ/L Potassium Level 3.7 MEQ/L Chloride Level 105 MEQ/L Carbon Dioxide Level 24.6 MEQ/L Anion Gap 9 MEQ/L Estimat Glomerular Filtration Rate 96 ML/MIN Total Creatine Kinase 210 U/L MDM Medical Decision Making Medical Screen Exam Complete: Yes Emergency Medical Condition: Yes Differential Diagnosis Influenza vs. strep pharyngitis vs. migraine headache vs. sinus headache vs. rhabdomyolysis vs. dehydration Narrative Course 28yo well appearing male here with flu like symptoms. No meningeal signs. BMP unremarkable. CPK normal. He is afebrile. Influenza and group A strep negative. Pt initially given toradol and NS IVF and still has headache. Pt then given compazine and headache has completely resolved. Feels much better and wants to go home. Return precautions given. Diagnosis Primary Impression: Headache Qualified Codes: R51 - Headache Additional Impression: Muscle ache Patient Instructions: General Instructions Departure Forms: Tests/Procedures Additional Instructions: Please follow up with your primary care physician in 2-3 days. Return to the ED if symptoms worsen. Med/Other Pt SpecificInfo: Prescription(s) given Scripts Acetaminophen (Tylenol) 325 Mg Tab 650 MG PO Q6H Y for PAIN SCALE 1 TO 4, #20 TAB 0 Refills Prov: Cherie Carter DO 02/03/18 Disposition: 01 DISCHARGE HOME Condition: Stable Cherie Carter DO Feb 03, 2018 21:18
[2018-02-03 22:02] LABS: BICARBONATE 24.6 MEQ/L (21.0-32.0); CALCIUM 8.8 MG/DL (8.5-10.1)
[2018-02-03 22:06] LABS: CREATININE 0.94 MG/DL (0.60-1.30)
[2018-02-03 22:15] VITALS: BP 119/64; PULSE 85; RESP 16; O2SAT 98
[2018-02-03] MEDS ORDERED: PROCHLORPERAZINE INJ 10 MG/2 ML VIAL IV PUSH ONE (22:15)
[2018-02-03] MEDS ORDERED: TYLE325T PO (23:02)
== END 2018-02-03 23:13 | disposition home or self-care (01) ==
LOC: PHED 20:40
DX: R51 Headache (principal); M79.1 Myalgia; R07.0 Pain in throat; R53.1 Weakness; Z87.442 Personal history of urinary calculi; Z88.1 Allergy status to other antibiotic agents; Z88.8 Allergy status to other drugs, medicaments and biological substances
CPT/HCPCS: 80048; 82550; 87081; 87804; 87880; 96361; 96374; 96375; 99284; J0780; J1885; J7030